=== PATIENT | male | born 1970 | race Caucasian/White ===

== ENCOUNTER 2019-02-25 08:16 | Day surgery (SDC) | payer BC ==
[2019-02-22 14:25] VITALS: BMI 37.1
[~2019-02-25 08:16] MED LIST: LACTATED RINGERS 1,000 ML IV SCH; LIDOCAINE 1% 20 ML VIAL (10MG/ML) FOR IV START INTRADERMA PRN
[2019-02-25 08:44] VITALS: RESP 16; TEMP 98
[2019-02-25] MEDS ORDERED: PROPOFOL 10 MG/ML 20 ML VIAL IV ONE (09:10)
[2019-02-25] MEDS ORDERED: LIDOCAINE 1% INJ 10MG/ML (20 ML MDV) ONE (09:10)
--- NOTE | 2019-02-25 09:13 | P.GSHP ---
History of Present Illness H&P Date: 02/25/19 Chief Complaint: Colon cancer screening Patient here today for colonoscopy. Last colonoscopy 10 years ago. That study was normal. No bowel related complaints. No family history of colon cancer Past Medical History Past Medical History: Hypertension Additional Past Medical History / Comment(s): seasonal allergies History of Any Multi-Drug Resistant Organisms: None Reported Past Surgical History: No Surgical Hx Reported Additional Past Surgical History / Comment(s): colonscopies Past Anesthesia/Blood Transfusion Reactions: No Reported Reaction Past Psychological History: Anxiety, Depression Smoking Status: Never smoker Past Alcohol Use History: Occasional Past Drug Use History: None Reported - Past Family History Mother Family Medical History: Pulmonary Embolus Father Family Medical History: Congestive Heart Failure (CHF), Coronary Artery Disease (CAD), Diabetes Mellitus, Myocardial Infarction (ME) Medications and Allergies Home Medications Medication Instructions Recorded Confirmed Type Cetirizine HCl [Zyrtec] 10 mg PO DAILY 02/22/19 02/25/19 History Fluticasone Nasal [place] [Flonase 1 spray EA NOSTRIL DAILY PRN 02/22/19 02/25/19 History Nasal [place]] Lisinopril [Zestril] 20 mg PO DAILY 02/22/19 02/25/19 History Multivitamins, Thera [Multivitamin 1 tab PO DAILY 02/22/19 02/25/19 History (formulary)] Allergies Allergy/AdvReac Type Severity Reaction Status Date / Time amoxicillin Allergy Anaphylaxis Verified 02/25/19 08:44 Surgical - Exam Vital Signs Temp Pulse Resp BP Pulse Ox 98 F 97 16 138/92 97 02/25/19 08:42 02/25/19 08:42 02/25/19 08:42 02/25/19 08:42 02/25/19 08:42 Physical exam: General: Well-developed, well-nourished HEENT: Normocephalic, sclerae nonicteric Abdomen: Nontender, nondistended Extremities: No edema Neuro: Alert and oriented Assessment and Plan (1) Colon cancer screening Narrative/Plan: Will proceed with colonoscopy at this time. Current Visit: Yes Status: Acute Code(s): Z12.11 - ENCOUNTER FOR SCREENING FOR MALIGNANT NEOPLASM OF COLON SNOMED Code(s): 127724621
[2019-02-25 09:51] VITALS: BP 121/84; PULSE 79
== END 2019-02-25 09:57 | disposition home or self-care (01) ==
LOC: ORWHC2ENDO 08:16
PROVIDERS: ATTEND Surgery
DX: Z12.11 Encounter for screening for malignant neoplasm of colon (principal); K63.5 Polyp of colon; D12.3 Benign neoplasm of transverse colon; I10 Essential (primary) hypertension; Z82.49 Family history of ischemic heart disease and other diseases of the circulatory system; Z83.3 Family history of diabetes mellitus; Z79.51 Long term (current) use of inhaled steroids; Z79.899 Other long term (current) drug therapy; Z88.1 Allergy status to other antibiotic agents
CPT/HCPCS: 88305; 45385; J2001; J2704

== ENCOUNTER → 2019-07-08 | Outpatient (CLI) | payer BC ==
[2019-07-08 17:39] LABS: Basophils # (A) 0.1 k/uL (0-0.2); Basophils % (A) 1 %; Eosinophils # (A) 0.1 k/uL (0-0.7); Eosinophils % (A) 1 %; HCT 47.5 % (39.0-53.0); HGB 16.2 gm/dL (13.0-17.5); Lymphocytes # (A) 4.4 k/uL (1.0-4.8); Lymphocytes % (A) 43 %; MCH 31.8 pg (25.0-35.0); MCHC 34.1 g/dL (31.0-37.0); MCV 93.4 fL (80.0-100.0); Mean Platelet Volume 7.3; Monocytes # (A) 0.4 k/uL (0-1.0); Monocytes % (A) 4 %; Neutrophils # (A) 5.1 k/uL (1.3-7.7); Neutrophils % (A) 50 %; Platelet Count 222 k/uL (150-450); RBC 5.08 m/uL (4.30-5.90); RDW 11.9 % (11.5-15.5); WBC 10.2 k/uL (3.8-10.6)
[2019-07-08 23:24] LABS: Erythrocyte Sedimentation Rate 8 mm/hr (0-15)
[2019-07-09 01:05] LABS: C Reactive Protein <0.4 mg/dL (0.0-0.8); Uric Acid 5.7 mg/dL (3.7-8.7)
== END | disposition home or self-care (01) ==
LOC: LABWHC1 17:13
PROVIDERS: ATTEND Orthopaedic Surgery
DX: M25.571 Pain in right ankle and joints of right foot (principal); M19.071 Primary osteoarthritis, right ankle and foot; I10 Essential (primary) hypertension; Z85.9 Personal history of malignant neoplasm, unspecified
CPT/HCPCS: 36415; 84443; 84550; 85025; 85652; 86140

== ENCOUNTER → 2019-07-13 | Outpatient (CLI) | payer BC | END | disposition home or self-care (01) | LOC: LABWHC1 17:22 | PROVIDERS: ATTEND Orthopaedic Surgery | DX: M25.571 Pain in right ankle and joints of right foot (principal); S92.101A Unspecified fracture of right talus, initial encounter for closed fracture; I10 Essential (primary) hypertension; M19.071 Primary osteoarthritis, right ankle and foot; E55.9 Vitamin D deficiency, unspecified; Z85.9 Personal history of malignant neoplasm, unspecified | CPT/HCPCS: 36415; 82306 ==

== ENCOUNTER 2020-10-08 20:23 | Emergency (ER) | payer BC ==
--- NOTE | 2020-10-08 20:30 | ED ---
General Adult HPI - General Source: patient, RN notes reviewed Mode of arrival: ambulatory Limitations: no limitations <Hayden Erickson - Last Filed: 10/08/20 20:28> <Arnol Davis - Last Filed: 10/09/20 06:48> - General Stated complaint: SOB Time Seen by Provider: 10/08/20 20:28 - History of Present Illness Initial comments: This a 50-year-old male presents emergency Department chief complaint of shortness of breath. Patient's been having progressive symptoms over the last 1 week. Patient has had 2 recent covid test which were negative one was today at [facility]. Patient states that he has some chest tightness. Patient has no history of lung disease denies being a smoker. Patient does have some left arm pain. Patient had a fever, cough also has had some bodyaches and chills. (Hayden Erickson) - Related Data Home Medications Medication Instructions Recorded Confirmed Cetirizine HCl [Zyrtec] 10 mg PO DAILY 02/22/19 02/25/19 Fluticasone Nasal [place] [Flonase 1 spray EA NOSTRIL DAILY PRN 02/22/19 02/25/19 Nasal [place]] Multivitamins, Thera [Multivitamin 1 tab PO DAILY 02/22/19 02/25/19 (formulary)] lisinopriL [Zestril] 20 mg PO DAILY 02/22/19 02/25/19 Previous Rx's Medication Instructions Recorded Azithromycin [Zithromax Z-pack (6 250 mg PO DIRECTED #6 tab 10/09/20 tabs)] Allergies Allergy/AdvReac Type Severity Reaction Status Date / Time amoxicillin Allergy Anaphylaxis Verified 10/08/20 20:31 Review of Systems ROS Other: All systems not noted in ROS Statement are negative. <Hayden Erickson - Last Filed: 10/08/20 20:28> ROS Other: All systems not noted in ROS Statement are negative. Constitutional: Denies: fever, chills, weakness Respiratory: Reports: cough. Denies: dyspnea, wheezes, hemoptysis Cardiovascular: Reports: dyspnea on exertion. Denies: chest pain, palpitations, orthopnea, edema, syncope Gastrointestinal: Denies: abdominal pain, nausea, vomiting, diarrhea Genitourinary: Denies: dysuria, hematuria Musculoskeletal: Denies: back pain Skin: Denies: rash Neurological: Denies: headache, weakness, numbness <Arnol Davis - Last Filed: 10/09/20 06:48> ROS Statement: Those systems with pertinent positive or pertinent negative responses have been documented in the HPI. Past Medical History Past Medical History: Hypertension Additional Past Medical History / Comment(s): seasonal allergies History of Any Multi-Drug Resistant Organisms: None Reported Past Surgical History: No Surgical Hx Reported Additional Past Surgical History / Comment(s): colonscopies Past Anesthesia/Blood Transfusion Reactions: No Reported Reaction Past Psychological History: Anxiety, Depression Past Alcohol Use History: Occasional Past Drug Use History: None Reported - Past Family History Mother Family Medical History: Pulmonary Embolus Father Family Medical History: Congestive Heart Failure (CHF), Coronary Artery Disease (CAD), Diabetes Mellitus, Myocardial Infarction (MA) <Hayden Erickson - Last Filed: 10/08/20 20:28> General Exam General appearance: alert, in no apparent distress Head exam: Present: atraumatic, normocephalic Eye exam: Present: normal appearance. Absent: scleral icterus, conjunctival injection ENT exam: Present: normal oropharynx Neck exam: Present: normal inspection, full ROM Respiratory exam: Present: normal lung sounds bilaterally. Absent: respiratory distress, wheezes, rales, rhonchi, stridor Cardiovascular Exam: Present: regular rate, normal rhythm, normal heart sounds. Absent: systolic murmur, diastolic murmur, rubs, gallop GI/Abdominal exam: Present: soft. Absent: distended, tenderness, guarding, rebound, rigid, mass Extremities exam: Present: normal inspection, normal capillary refill. Absent: pedal edema, calf tenderness Back exam: Present: normal inspection. Absent: CVA tenderness (R), CVA tenderness (L) Neurological exam: Present: alert Skin exam: Present: warm, dry, intact, normal color. Absent: rash <Arnol Davis - Last Filed: 10/09/20 06:48> Course Vital Signs 10/08/20 10/08/20 10/09/20 20:27 20:40 00:31 Temperature 97.8 F 97.9 F Pulse Rate 109 H 80 Respiratory 18 18 17 Rate Blood Pressure 132/77 131/84 O2 Sat by Pulse 94 L 98 Oximetry EKG Findings - EKG Results: EKG: interpreted by ERMMarielena, sinus rhythm (Rate 91 bpm) - Blocks, [place], Hypertrophy, ST Abn: Chamber hypertrophy or enlargement: left ventricular hypertrophy or enlargement (LVE) (With repolarization abnormality) <Arnol Davis - Last Filed: 10/09/20 06:48> Medical Decision Making - Lab Data Result diagrams: 10/08/20 23:10 10/08/20 23:02 <Arnol Davis - Last Filed: 10/09/20 06:48> - Medical Decision Making I saw this patient in conjunction with the physician residential living assistant. I performed independent history and physical exam. Agree with case management. (Arnol Davis) - Lab Data Lab Results 10/08/20 10/08/20 10/08/20 Range/Units 23:02 23:02 23:02 WBC (3.8-10.6) k/uL RBC (4.30-5.90) m/uL Hgb (13.0-17.5) gm/dL Hct (39.0-53.0) % MCV (80.0-100.0) fL MCH (25.0-35.0) pg MCHC (31.0-37.0) g/dL RDW (11.5-15.5) % Plt Count (150-450) k/uL MPV Neutrophils % % Lymphocytes % % Monocytes % % Eosinophils % % Basophils % % Neutrophils # (1.3-7.7) k/uL Lymphocytes # (1.0-4.8) k/uL Monocytes # (0-1.0) k/uL Eosinophils # (0-0.7) k/uL Basophils # (0-0.2) k/uL PT 10.4 (9.0-12.0) sec INR 1.0 (<1.2) APTT 25.4 (22.0-30.0) sec D-Dimer 0.29 (<0.60) mg/L FEU Sodium 137 (137-145) mmol/L Potassium 4.1 (3.5-5.1) mmol/L Chloride 103 (98-107) mmol/L Carbon Dioxide 23 (22-30) mmol/L Anion Gap 11 mmol/L BUN 18 (9-20) mg/dL Creatinine 0.81 (0.66-1.25) mg/dL Est GFR (CKD-EPI)AfAm >90 (>60 ml/min/1.73 sqM) Est GFR (CKD-EPI)NonAf >90 (>60 ml/min/1.73 sqM) Glucose 149 H (74-99) mg/dL Plasma Lactic Acid Adriano 1.3 (0.7-2.0) mmol/L Calcium 9.3 (8.4-10.2) mg/dL Total Bilirubin 0.7 (0.2-1.3) mg/dL AST 46 (17-59) U/L ALT 42 (4-49) U/L Alkaline Phosphatase 69 (38-126) U/L Troponin I (0.000-0.034) ng/mL NT-Pro-B Natriuret Pep pg/mL Total Protein 7.2 (6.3-8.2) g/dL Albumin 4.3 (3.5-5.0) g/dL 10/08/20 10/08/20 10/08/20 Range/Units 23:02 23:02 23:10 WBC 5.6 (3.8-10.6) k/uL RBC 5.15 (4.30-5.90) m/uL Hgb 16.4 (13.0-17.5) gm/dL Hct 46.8 (39.0-53.0) % MCV 90.8 (80.0-100.0) fL MCH 31.8 (25.0-35.0) pg MCHC 35.0 (31.0-37.0) g/dL RDW 11.7 (11.5-15.5) % Plt Count 111 L (150-450) k/uL MPV 7.8 Neutrophils % 73 % Lymphocytes % 22 % Monocytes % 4 % Eosinophils % 0 % Basophils % 0 % Neutrophils # 4.1 (1.3-7.7) k/uL Lymphocytes # 1.2 (1.0-4.8) k/uL Monocytes # 0.2 (0-1.0) k/uL Eosinophils # 0.0 (0-0.7) k/uL Basophils # 0.0 (0-0.2) k/uL PT (9.0-12.0) sec INR (<1.2) APTT (22.0-30.0) sec D-Dimer (<0.60) mg/L FEU Sodium (137-145) mmol/L Potassium (3.5-5.1) mmol/L Chloride (98-107) mmol/L Carbon Dioxide (22-30) mmol/L Anion Gap mmol/L BUN (9-20) mg/dL Creatinine (0.66-1.25) mg/dL Est GFR (CKD-EPI)AfAm (>60 ml/min/1.73 sqM) Est GFR (CKD-EPI)NonAf (>60 ml/min/1.73 sqM) Glucose (74-99) mg/dL Plasma Lactic Acid Adriano (0.7-2.0) mmol/L Calcium (8.4-10.2) mg/dL Total Bilirubin (0.2-1.3) mg/dL AST (17-59) U/L ALT (4-49) U/L Alkaline Phosphatase (38-126) U/L Troponin I <0.012 (0.000-0.034) ng/mL NT-Pro-B Natriuret Pep 66 pg/mL Total Protein (6.3-8.2) g/dL Albumin (3.5-5.0) g/dL Disposition <Hayden Erickson - Last Filed: 10/08/20 20:28> Is patient prescribed a controlled substance at d/c from ED?: No <Arnol Davis - Last Filed: 10/09/20 06:48> Clinical Impression: Pneumonia Disposition: HOME SELF-CARE Condition: Good Instructions (If sedation given, give patient instructions): Pneumonia (ED) Prescriptions: Azithromycin [Zithromax Z-pack (6 tabs)] 250 mg PO DIRECTED #6 tab Referrals: Nicolas Medina III, MD [Primary Care Provider] - 1-2 days
--- NOTE | 2020-10-08 22:13 | XR ---
EXAMINATION TYPE: XR chest 2V DATE OF EXAM: 10/08/2020 CLINICAL HISTORY: sob. TECHNIQUE: Frontal and lateral view of the chest. COMPARISON: None FINDINGS: Low lung volumes. The cardiomediastinal silhouette is within normal limits for size. Pulmo nary vasculature is normal. There are perihilar and left lateral lung focal airspace opacities. No pl eural effusion, or pneumothorax seen. The osseous structures are intact. IMPRESSION: 1. Left lower lobe focal pneumonia. Recommend follow-up to resolution. 2. Right infrahilar airspace opacity may be accentuated lung markings due to low lung volumes.
[2020-10-08] MEDS ORDERED: AZITHROMYCIN 500 MG TAB PO STA (22:16)
[2020-10-08 23:33] LABS: Basophils % (A) 0 %; Eosinophils % (A) 0 %; HCT 46.8 % (39.0-53.0); HGB 16.4 gm/dL (13.0-17.5); Lymphocytes # (A) 1.2 k/uL (1.0-4.8); Lymphocytes % (A) 22 %; MCH 31.8 pg (25.0-35.0); MCV 90.8 fL (80.0-100.0); Mean Platelet Volume 7.8; Monocytes # (A) 0.2 k/uL (0-1.0); Monocytes % (A) 4 %; Neutrophils # (A) 4.1 k/uL (1.3-7.7); Neutrophils % (A) 73 %; Platelet Count 111 k/uL (150-450); RBC 5.15 m/uL (4.30-5.90); RDW 11.7 % (11.5-15.5); WBC 5.6 k/uL (3.8-10.6)
[2020-10-08 23:43] LABS: ALT 42 U/L (4-49); AST 46 U/L (17-59); African American GFR (CKD) >90 (>60 ml/min/1.73 sqM); Albumin 4.3 g/dL (3.5-5.0); Alkaline Phosphatase 69 U/L (38-126); Anion Gap 11 mmol/L; Blood Urea Nitrogen 18 mg/dL (9-20); Calcium 9.3 mg/dL (8.4-10.2); Carbon Dioxide 23 mmol/L (22-30); Chloride 103 mmol/L (98-107); Glucose 149 mg/dL (74-99); Non-African American GFR(CKD) >90 (>60 ml/min/1.73 sqM); Potassium 4.1 mmol/L (3.5-5.1); Sodium 137 mmol/L (137-145); Total Bilirubin 0.7 mg/dL (0.2-1.3); Total Protein 7.2 g/dL (6.3-8.2)
[2020-10-08 23:50] LABS: D-Dimer 0.29 mg/L FEU (<0.60); Partial Thromboplastin Time 25.4 sec (22.0-30.0); Prothrombin Time 10.4 sec (9.0-12.0)
[2020-10-09 01:09] VITALS: BP 131/84; PULSE 80; RESP 17; TEMP 97.9
== END 2020-10-09 01:08 | disposition home or self-care (01) ==
LOC: EC 20:23
DX: J18.9 Pneumonia, unspecified organism (principal); M79.602 Pain in left arm; I10 Essential (primary) hypertension; Z79.899 Other long term (current) drug therapy; Z88.0 Allergy status to penicillin
CPT/HCPCS: 36415; 93005; 85379; 83880; 80053; 83605; 84484; 85025; 85610; 85730; 71046; 99285; 96365; J0696

== ENCOUNTER 2020-10-15 14:46 | Inpatient (IN) | payer BC ==
[2020-10-15 15:20] LABS: African American GFR (CKD) >90 (>60 ml/min/1.73 sqM); Anion Gap 12 mmol/L; Blood Urea Nitrogen 18 mg/dL (9-20); Calcium 8.7 mg/dL (8.4-10.2); Carbon Dioxide 24 mmol/L (22-30); Chloride 104 mmol/L (98-107); Glucose 153 mg/dL (74-99); Non-African American GFR(CKD) >90 (>60 ml/min/1.73 sqM); Potassium 3.4 mmol/L (3.5-5.1); Sodium 140 mmol/L (137-145)
--- NOTE | 2020-10-15 15:24 | XR ---
EXAMINATION TYPE: XR chest 1V portable DATE OF EXAM: 10/15/2020 HISTORY: Patchy perihilar infiltrates compatible with Covid 19 pneumonia. COMPARISON: 10/08/2020 TECHNIQUE: Single view of the chest is submitted. FINDINGS: Demonstrated are scattered senescent parenchymal change. Patchy perihilar infiltrates compatible with Covid 19 pneumonia. The heart is stable. Hilar and mediastinal structures are within normal limits. Degenerative changes are seen of the dorsal spine. IMPRESSION: 1. Chronic changes without evidence for acute pulmonary disease.
[2020-10-15 15:27] LABS: Basophils # (A) 0.1 k/uL (0-0.2); Basophils % (A) 1 %; Eosinophils # (A) 0.1 k/uL (0-0.7); Eosinophils % (A) 1 %; HCT 44.4 % (39.0-53.0); HGB 15.5 gm/dL (13.0-17.5); Lymphocytes # (A) 1.4 k/uL (1.0-4.8); Lymphocytes % (A) 12 %; MCH 31.9 pg (25.0-35.0); MCV 91.1 fL (80.0-100.0); Mean Platelet Volume 7.4; Monocytes # (A) 0.5 k/uL (0-1.0); Monocytes % (A) 4 %; Neutrophils % (A) 82 %; RBC 4.87 m/uL (4.30-5.90); WBC 12.2 k/uL (3.8-10.6)
[2020-10-15 15:29] LABS: Platelet Count 269 k/uL (150-450)
[2020-10-15] MEDS ORDERED: DEXAMETHASONE SOD PHOSPHATE 10 MG/ML 1 ML VIAL IV STA (15:31)
--- NOTE | 2020-10-15 15:36 | ED ---
General Adult HPI - General Chief complaint: Shortness of Breath Stated complaint: SOB Time Seen by Provider: 10/15/20 14:47 Source: patient, EMS Mode of arrival: EMS Limitations: no limitations - History of Present Illness Initial comments: Dictation was produced using enGene dictation software. please excuse any grammatical, word or spelling errors. This patient was cared for during a federal and state declared state of emergency secondary to Covid 19 Chief Complaint: 50-year-old male brought in by EMS for worsening shortness of breath fever. History of Present Illness: It is a 50-year-old male who states he has past medical history of hypertension and seasonal ALLERGIES. He has no other comorbidities. Patient states 2 weeks away. Having symptoms of fever, shortness of breath. Been tested at [facility] for coronavirus and was negative. Patient denies any obvious exposure to anybody with coronavirus. Patient was seen here in the emergency department 7 days ago where he was diagnosed with pneumonia. He is given prescription for Zithromax pack and discharged. The ROS documented in this emergency department record has been reviewed and confirmed by me. Those systems with pertinent positive or negative responses have been documented in the HPI. All other systems are other negative and/or noncontributory. PHYSICAL EXAM: General Impression: Alert and oriented x3, distress secondary to dyspnea HEENT: Normocephalic atraumatic, extra-ocular movements intact, pupils equal and reactive to light bilaterally, mucous membranes moist. Cardiovascular: Mildly tachycardic Chest: Three word sentences, no retractions, no tachypnea Abdomen: abdomen soft, non-tender, non-distended, no organomegaly Musculoskeletal: Pulses present and equal in all extremities, no peripheral edema Motor: no focal deficits noted Neurological: CN II-XII grossly intact, no focal motor or sensory deficits noted Skin: Intact with no visualized rashes Psych: Normal affect and mood ED course: 50-year-old male presents emergency department for worsening shortness of breath. As upon arrival shows hypoxia 76% on room air. Patient p laced on 6 L and his gait with improvement to 85%. Patient is tachypneic with a heart rate of 40. Patient be placed on BiPAP. Chest x-ray shows bilateral filtrates COVID-19. Patient's saturations improved to 97% with BiPAP. Laboratory evaluation obtained. CBC shows mild leukocytosis of 12.2. Metabolic panel is unremarkable. Arterial blood gas shows pO2 54 and 60% FiO2. This was prior to initiation of BiPAP therapy. PCO2 35, bicarb is 26. Chest x-ray shows chronic changes. Given patient's degree of symptoms changes CT angios the chest was ordered showing multiple scattered filling defects within the second third order branches bilaterally in the right greater than the left compatible with pulmonary embolism. There is also radiographic evidence of COVID-[address] Ernst's went except patient's care. Patient is non- hypotensive. I believe that most of patient's respiratory symptoms are secondary to COVID-19 pneumonias post pulmonary embolism. Nonetheless patient started on high-dose heparin therapy. We will admit to cardiac telemetry with consultation to pulmonology. EKG interpretation: Ventricular rate 106, sinus tachycardia, MA interval 140, Q RS 84, QTC 488. No MA prolongation, no QTC prolongation, no ST or T-wave changes noted. EKG compared to 10/08/2020 showing no changes. Overall, this EKG is unremarkable - Related Data Home Medications Medication Instructions Recorded Confirmed Cetirizine HCl [Zyrtec] 10 mg PO DAILY 02/22/19 10/15/20 lisinopriL [Zestril] 20 mg PO DAILY 02/22/19 10/15/20 ALPRAZolam [Xanax] 0.125 - 0.25 mg PO Q6H PRN 10/15/20 10/15/20 Albuterol Sulfate [Proair 1 puff PO RT-Q4H PRN 10/15/20 10/15/20 Respiclick] Benzonatate [Tessalon Perles] 100 mg PO TID PRN 10/15/20 10/15/20 Escitalopram [Lexapro] 10 mg PO DAILY 10/15/20 10/15/20 Multivit-Min/FA/Lycopen/Lutein 1 tab PO DAILY 10/15/20 10/15/20 [Centrum Silver Men Tablet] Multivitamin [Multivitamins Adult 1 tab PO DAILY 10/15/20 10/15/20 Gummies] levoFLOXacin 750 mg PO DAILY 10/15/20 10/15/20 Allergies Allergy/AdvReac Type Severity Reaction Status Date / Time amoxicillin Allergy Anaphylaxis Verified 10/15/20 16:05 Review of Systems ROS Statement: Those systems with pertinent positive or pertinent negative responses have been documented in the HPI. ROS Other: All systems not noted in ROS Statement are negative. Past Medical History Past Medical History: Hypertension, Pneumonia Additional Past Medical History / Comment(s): seasonal allergies History of Any Multi-Drug Resistant Organisms: None Reported Past Surgical History: No Surgical Hx Reported Additional Past Surgical History / Comment(s): colonscopies Past Anesthesia/Blood Transfusion Reactions: No Reported Reaction Past Psychological History: Anxiety, Depression Smoking Status: Never smoker Past Alcohol Use History: Occasional Past Drug Use History: None Reported - Past Family History Mother Family Medical History: Pulmonary Embolus Father Family Medical History: Congestive Heart Failure (CHF), Coronary Artery Disease (CAD), Diabetes Mellitus, Myocardial Infarction (DC) General Exam Limitations: no limitations Course Vital Signs 10/15/20 10/15/20 10/15/20 14:48 14:57 15:11 Temperature 98.3 F Pulse Rate 107 H Respiratory 40 H Rate Blood Pressure 130/86 O2 Sat by Pulse 76 L 85 L 90 L Oximetry 10/15/20 10/15/20 15:47 16:05 Temperature Pulse Rate 94 Respiratory 32 H 40 H Rate Blood Pressure O2 Sat by Pulse 96 Oximetry Medical Decision Making - Lab Data Result diagrams: 10/15/20 15:05 10/15/20 15:05 Lab Results 10/15/20 10/15/20 10/15/20 Range/Units 15:05 15:05 16:05 WBC 12.2 H (3.8-10.6) k/uL RBC 4.87 (4.30-5.90) m/uL Hgb 15.5 (13.0-17.5) gm/dL Hct 44.4 (39.0-53.0) % MCV 91.1 (80.0-100.0) fL MCH 31.9 (25.0-35.0) pg MCHC 35.0 (31.0-37.0) g/dL RDW 12.0 (11.5-15.5) % Plt Count 269 D (150-450) k/uL MPV 7.4 Neutrophils % 82 % Lymphocytes % 12 % Monocytes % 4 % Eosinophils % 1 % Basophils % 1 % Neutrophils # 10.0 H (1.3-7.7) k/uL Lymphocytes # 1.4 (1.0-4.8) k/uL Monocytes # 0.5 (0-1.0) k/uL Eosinophils # 0.1 (0-0.7) k/uL Basophils # 0.1 (0-0.2) k/uL Sample Site rrad ABG pH 7.49 H (7.35-7.45) ABG pCO2 35 (35-45) mmHg ABG pO2 54 L* (83-108) mmHg ABG HCO3 26 H (21-25) mmol/L ABG Total CO2 28 H (19-24) mmol/L ABG O2 Saturation 88.6 L (94-97) % ABG Base Excess 3.0 mmol/L Davey Test Yes FiO2 60 % Sodium 140 (137-145) mmol/L Potassium 3.4 L (3.5-5.1) mmol/L Chloride 104 (98-107) mmol/L Carbon Dioxide 24 (22-30) mmol/L Anion Gap 12 mmol/L BUN 18 (9-20) mg/dL Creatinine 0.69 (0.66-1.25) mg/dL Est GFR (CKD-EPI)AfAm >90 (>60 ml/min/1.73 sqM) Est GFR (CKD-EPI)NonAf >90 (>60 ml/min/1.73 sqM) Glucose 153 H (74-99) mg/dL Calcium 8.7 (8.4-10.2) mg/dL Critical Care Time Critical Care Time: Yes Total Critical Care Time: 33 Disposition Clinical Impression: COVID-19, Hypoxia, Pulmonary emboli Disposition: ADMITTED IP TO THIS [facility] Condition: Critical Referrals: Nicolas Medina III, MD [Primary Care Provider] - 1-2 days Decision Time: 16:35
--- NOTE | 2020-10-15 15:59 | CT ---
EXAMINATION TYPE: CT angio chest DATE OF EXAM: 10/15/2020 COMPARISON: None HISTORY: Shortness of breath and productive cough. CT DLP: 530.2 mGycm CONTRAST: CT chest with contrast and 3D reconstruction with MIP imaging is performed with IV Contrast, patient injected with 100 mL of Isovue 370. Contrast-enhanced CT of the chest was performed through the course of the pulmonary arteries with mehdi g and mediastinal window settings submitted. 3D reconstruction with MIP imaging was also performed. PULMONARY ARTERIES: There are a few scattered filling defects noted within the second and third order branches bilaterally right greater than left compatible with pulmonary embolism. No evidence for sheron tral embolus or sagittal component. LUNGS: Diffuse airspace infiltrates compatible with Covid 19 pneumonia. MEDIASTINUM: Thoracic aorta is of normal caliber,however, evaluation is limited given timing of the contrast bolus. If there is concern for thoracic aortic pathology consider JOSE. Correlate clinicall y . The heart is not enlarged. No evidence for mediastinal mass. No mediastinal lymph nodes greater than 1cm. HILAR STRUCTURES: No evidence for mass. No hilar lymph nodes greater than 1 cm. UPPER ABDOMEN: No significant abnormality is seen. IMPRESSION: 1. Findings compatible with pulmonary embolism. 2. Covid 19 pneumonia.
[2020-10-15 16:09] LABS: ABG HCO3 26 mmol/L (21-25); ABG Oxygen Saturation 88.6 % (94-97); ABG PCO2 35 mmHg (35-45); ABG PH 7.49 (7.35-7.45); ABG TCO2 28 mmol/L (19-24); Allen Test Performed? Yes
[2020-10-15 16:12] LABS: ABG PO2 54 mmHg (83-108)
[2020-10-15] MEDS ORDERED: HEPARIN SODIUM 1,000 UN/ML (10ML VL) IV PRN (16:26)
[2020-10-15] MEDS ORDERED: HEPARIN SODIUM 1,000 UN/ML (10ML VL) IV ONE (16:26)
[2020-10-15] MEDS ORDERED: ACETAMINOPHEN TAB 325 MG TAB PO PRN (16:31)
[2020-10-15] MEDS ORDERED: NALOXONE 0.4 MG/ML 1 ML VIAL IV PRN (16:31)
[2020-10-15] MEDS ORDERED: ONDANSETRON 4 MG/2 ML VIAL IVP PRN (16:31)
[2020-10-15] MEDS: SODIUM CHLORIDE 0.9% 1,000 ML IV SCH (16:49)
[2020-10-15] MEDS: HEPARIN SOD,PORK IN 0.45% NACL 25,000 UNIT in 0.45% NACL 1 250ML.BAG IV SCH (16:50)
[2020-10-15] MEDS ORDERED: ALPRAZolam 0.25 MG TAB PO PRN (19:08)
[2020-10-15] MEDS ORDERED: BENZONATATE 100 MG CAP PO PRN (19:08)
[2020-10-15] MEDS ORDERED: Magnesium Replacement Protocol 1 EACH MISC MISCELLANE PRN (19:11)
[2020-10-15] MEDS ORDERED: Potassium Replacement Protocol 1 EACH MISC MISCELLANE PRN (19:11)
[2020-10-15 20:04] LABS: ALT 109 U/L (4-49); AST 66 U/L (17-59); African American GFR (CKD) >90 (>60 ml/min/1.73 sqM); Albumin 3.8 g/dL (3.5-5.0); Alkaline Phosphatase 100 U/L (38-126); Anion Gap 10 mmol/L; Blood Urea Nitrogen 18 mg/dL (9-20); Calcium 9.1 mg/dL (8.4-10.2); Carbon Dioxide 27 mmol/L (22-30); Chloride 103 mmol/L (98-107); Glucose 201 mg/dL (74-99); LDH 1092 U/L (313-618); Magnesium 2.3 mg/dL (1.6-2.3); Non-African American GFR(CKD) >90 (>60 ml/min/1.73 sqM); Potassium 3.9 mmol/L (3.5-5.1); Sodium 140 mmol/L (137-145); Total Bilirubin 0.9 mg/dL (0.2-1.3); Total Protein 7.1 g/dL (6.3-8.2)
--- NOTE | 2020-10-15 20:28 | HP ---
HISTORY AND PHYSICAL DATE OF SERVICE: 10/15/2020 CHIEF COMPLAINT: Shortness of breath. HISTORY OF PRESENT ILLNESS: This 50-year-old gentleman with a past medical history of hypertension, history of pneumonia, seasonal allergies, anxiety, depression, being followed by Dr. Medina in the outpatient setting, was complaining of cough and fever and shortness of breath for the past 2 weeks. The previous testing at [facility] for COVID-19 was negative. The patient's father was actually admitted to [facility] for several days with COVID-19 pneumonia. The patient was seen in the emergency room and the patient was given Z-Richard and was discharged. Currently the patient is complaining of increased shortness of breath and cough and sputum, and the patient came to [facility] and was admitted for further evaluation and treatment. The evaluation showed WBC 12.2 and a COVID-19 was taken . The chest x-ray which was personally reviewed by me showed evidence of bilateral pneumonia suggestive of COVID-19. The chest CTA showed bilateral pulmonary embolism as well as pneumonia. Chest CTA again personally reviewed by me showed bilateral lesions fairly typical of COVID-19 pneumonia which were very extensive. There is no history of any rigor. No history of headache, loss of consciousness, seizures at this time. PAST MEDICAL HISTORY: History of hypertension, history of pneumonia, history of seasonal allergies, anxiety, depression. HOME MEDICATIONS: Levaquin, Xanax, Zestril, multivitamins, Lexapro, Zyrtec, Tessalon, ProAir. ALLERGIES: AMOXICILLIN. FAMILY HISTORY: History of pulmonary embolism in the family. SOCIAL HISTORY: No history of smoking. Occasional alcohol intake. REVIEW OF SYSTEMS: ENT: No diminished hearing. No diminished vision. CARDIOVASCULAR SYSTEM: As mentioned earlier. RESPIRATORY SYSTEM: As mentioned earlier. GI: No nausea, vomiting. : No dysuria or retention. NERVOUS SYSTEM: No numbness, weakness. ALLERGY/IMMUNOLOGY: No asthma, hayfever. MUSCULOSKELETAL: As mentioned earlier. HEMATOLOGY/ONCOLOGY: No history of anemia. ENDOCRINE: No history of diabetes, hypothyroidism. CONSTITUTIONAL: As mentioned earlier. DERMATOLOGY: Negative. RHEUMATOLOGY: Negative. PSYCHIATRY: As mentioned earlier. PHYSICAL EXAMINATION: Patient alert and oriented x3. Pulse is 94, blood pressure 120/93, respirations 16, temperature normal, pulse ox 96% on BiPAP. HEENT: Conjunctivae normal. Oral mucosa moist. NECK: No jugular venous distention. No carotid bruit. No lymph node enlargement. CARDIOVASCULAR SYSTEM: S1, S2 muffled. RESPIRATORY SYSTEM: Breath sounds diminished at the bases. A few scattered rhonchi and crackles. ABDOMEN: Soft, obese, non-tender. No mass palpable. LEGS: No edema. No swelling. NERVOUS SYSTEM: Higher functions as mentioned earlier. Moves all 4 limbs. No focal motor or sensory deficit. LYMPHATICS: No lymph node palpable in neck, axillae or groin. SKIN: No ulcer, rash, bleeding. JOINTS: No active deforming arthropathy. LABS: WBC 12.2, hemoglobin 15.5. Sodium 140, potassium 3.4. ASSESSMENT: 1. Acute COVID-19 infection with acute bilateral interstitial pneumonia with acute hypoxic hypercarbic respiratory failure. 2. Acute bilateral pulmonary embolism. 3. Hypokalemia. 4. Increased white count. 5. Acute respiratory alkalosis. 6. Hypertension. 7. Pneumonia. 8. History of seasonal allergies. 9. History of anxiety, depression. 10.Obesity with body mass index 17.1. 11.FULL CODE. RECOMMENDATIONS AND DISCUSSION: In this 50-year-old gentleman who presented with multiple complex medical issues, we will monitor the patient closely, continue the current medications, continue symptomatic treatment. Will initiate dexamethasone, usual treatment for COVID-19 pneumonia. Otherwise, I would also recommend IV heparin. Consult Infectious Disease and Pulmonary. I would also recommend a serum procalcitonin also. Cultures also will be obtained. Prognosis is guarded because of multiple complex medical issues. Further recommendations to follow. A copy of this dictation is being forwarded to Dr. Medina, who is the primary physician. Replace the electrolyte as well. Prognosis guarded. MMODL / IJN: [id number] / MTDD
[2020-10-15 20:48] LABS: INR 1.2 (<1.2); Prothrombin Time 12.5 sec (9.0-12.0)
[2020-10-15 20:49] LABS: Partial Thromboplastin Time 116.8 sec (22.0-30.0)
[2020-10-15 20:51] LABS: D-Dimer 15.36 mg/L FEU (<0.60)
[2020-10-15 21:20] LABS: C Reactive Protein 16.5 mg/dL (<1.0)
[2020-10-15] MEDS: ZINC SULFATE 220 MG CAP PO SCH (23:25)
[2020-10-15] MEDS ORDERED: MORPHINE SULFATE 2 MG/ML SYRINGE IVP STA (23:53)
[2020-10-15] MEDS ORDERED: MORPHINE SULFATE 2 MG/ML SYRINGE IVP PRN (23:53)
[2020-10-15] MEDS ORDERED: LORazepam 2 MG/ML INJ IV STA (23:53)
[2020-10-16] MEDS: ALBUTEROL HFA INHALER INHALATION SCH ×5 (02:40→23:48)
[2020-10-16 05:37] LABS: Basophils % (A) 0 %; Eosinophils % (A) 0 %; HCT 43.2 % (39.0-53.0); HGB 14.5 gm/dL (13.0-17.5); Lymphocytes # (A) 1.1 k/uL (1.0-4.8); Lymphocytes % (A) 15 %; MCH 30.6 pg (25.0-35.0); MCHC 33.5 g/dL (31.0-37.0); MCV 91.4 fL (80.0-100.0); Mean Platelet Volume 7.3; Monocytes # (A) 0.2 k/uL (0-1.0); Monocytes % (A) 2 %; Neutrophils % (A) 80 %; Platelet Count 316 k/uL (150-450); RBC 4.73 m/uL (4.30-5.90); RDW 12.7 % (11.5-15.5); WBC 7.4 k/uL (3.8-10.6)
[2020-10-16] MEDS: HEPARIN SOD,PORK IN 0.45% NACL 25,000 UNIT in 0.45% NACL 1 250ML.BAG IV SCH ×2 (06:32→23:34)
--- NOTE | 2020-10-16 09:00 | P.CNPUL ---
History of Present Illness Consult date: 10/16/20 Requesting physician: Hardy Ernst Reason for consult: dyspnea, cough, hypoxemia, pneumonia, pneumothorax, pulmonary embolism Chief complaint: Shortness of breath. History of present illness: Pulmonary consult dated 10/16/2020. 50-year-old male, that was brought into the emergency room by EMS. He was seen there on October 15 by one of the ER physician. His complaints included shortness of breath, which could worsen over the last number of days. The patient hasn't been feeling well for weeks. The patient apparently tested recently at one of the urgent care centers and was negative for coronavirus. Here in our emergency room, he was also tested and was found to be negative. Currently, his father is in the hospital with coronavirus pneumonia. The patient had a computed tomography scan of the chest which not only showed small bilateral pulmonary emboli, but show typical bilateral groundglass opacities consistent with COVID 19 pneumonia. The patient complains of shortness of breath, cough, chest congestion, fever, chills, and muscle aches. Currently, he's on BiPAP with settings of IPAP 14, EPAP 7, and 100%. He is also getting IV heparin. In addition, there is an AIRVO device in his room set up at 60 L/m and 90% FiO2. His medical history is positive for hypertension. White count 7.4, hemoglobin 14.5, hematocrit 43.2, platelet count 316,000. PTT is 52.4. D-dimer is 15.36. Blood gases show a PaO2 of 54, PaCO2 35, and a pH is 7.49. Electrolyte profile is essentially normal. AST 66 LC 109 LDH 1092 troponin normal and C-reactive protein 16.5. Lim virus testing here was negative as mentioned above. Chest x-ray shows bilateral infiltrates, and computed tomography scan showed groundglass opacities as well as small bilateral pulmonary emboli. Review of Systems REVIEW OF SYSTEMS: CONSTITUTIONAL: Fever and chills. NEUROLOGIC: [ Negative.] HEENT: [ Negative.] CARDIAC: [Negative.] PULMONARY: Shortness of breath, cough, chest tightness, chest congestion. GI: [Negative.] : [Negative.] RHEUMATOLOGIC: [ Negative.] IMMUNOLOGIC: [ Negative.] ENDOCRINE: [Negative. ] DERMATOLOGIC: [Negative.] Past Medical History Past Medical History: Hypertension, Pneumonia Additional Past Medical History / Comment(s): seasonal allergies History of Any Multi-Drug Resistant Organisms: None Reported Past Surgical History: No Surgical Hx Reported Additional Past Surgical History / Comment(s): colonscopies Past Anesthesia/Blood Transfusion Reactions: No Reported Reaction Past Psychological History: Anxiety, Depression Smoking Status: Never smoker Past Alcohol Use History: None Reported Past Drug Use History: None Reported - Past Family History Mother Family Medical History: Pulmonary Embolus Father Family Medical History: Congestive Heart Failure (CHF), Coronary Artery Disease (CAD), Diabetes Mellitus, Myocardial Infarction ([place]) Medications and Allergies Home Medications Medication Instructions Recorded Confirmed Type Cetirizine HCl [Zyrtec] 10 mg PO DAILY 02/22/19 10/15/20 History lisinopriL [Zestril] 20 mg PO DAILY 02/22/19 10/15/20 History ALPRAZolam [Xanax] 0.125 - 0.25 mg PO Q6H PRN 10/15/20 10/15/20 History Albuterol Sulfate [Proair 1 puff PO RT-Q4H PRN 10/15/20 10/15/20 History Respiclick] Benzonatate [Tessalon Perles] 100 mg PO TID PRN 10/15/20 10/15/20 History Escitalopram [Lexapro] 10 mg PO DAILY 10/15/20 10/15/20 History Multivit-Min/FA/Lycopen/Lutein 1 tab PO DAILY 10/15/20 10/15/20 History [Centrum Silver Men Tablet] Multivitamin [Multivitamins Adult 1 tab PO DAILY 10/15/20 10/15/20 History Gummies] levoFLOXacin 750 mg PO DAILY 10/15/20 10/15/20 History Allergies Allergy/AdvReac Type Severity Reaction Status Date / Time amoxicillin Allergy Anaphylaxis Verified 10/15/20 16:05 Physical Exam Osteopathic Statement: *. No significant issues noted on an osteopathic structural exam other than those noted in the History and Physical/Consult. Vitals: Vital Signs Temp Pulse Resp BP Pulse Ox 10/16/20 07:50 91 L 10/16/20 06:37 97.9 F 98 20 150/97 90 L 10/15/20 23:42 92 L 10/15/20 21:20 97 32 H 138/92 96 04/26/21 16:54 94 16 132/93 96 10/15/20 16:05 94 40 H 96 10/15/20 15:47 32 H 10/15/20 15:11 90 L 10/15/20 14:57 85 L 10/15/20 14:48 98.3 F 107 H 40 H 130/86 76 L Intake and Output 10/15/20 10/16/20 10/16/20 22:59 06:59 14:59 Intake Total 234.737 Balance 234.737 Intake: Intake, IV Titration 234.737 Amount Heparin Sod,Pork in 0.45% 234.737 NaCl 25,000 unit In 0.45 % NaCl 1 250ml.bag @ 18 UNITS/KG/HR 18.779 mls/hr IV .[id number] [facility] Rx#: [id number] Other: Weight 104.326 kg No acute distress, oriented 3. Currently on AIRVO. Saturations 91%. HEENT examination is grossly unremarkable. Mucous membranes are moist. No oral lesions. Neck supple. Full range of motion. No adenopathy thyromegaly or neck vein distention. Cardiovascular examination reveals regular rhythm rate. S1-S2 normal. No S3 or S4. No discernible murmur noted. Heart sounds are distant. Heart rate 98 bpm. Lungs reveal diffuse bilateral rhonchi. Breath sounds are diminished. No wheezes. A few scattered crackles. The patient coughs on deep inspiration. Breath sounds are equal bilaterally. Abdomen soft bowel sounds are heard. No masses or tenderness. Extremities are intact. No cyanosis clubbing or edema. Skin is without rash or lesion. Neurologic examination is brief but nonfocal. Results - Laboratory Findings CBC and BMP: 10/16/20 04:59 10/15/20 19:32 ABG ABG pH 7.49 (7.35-7.45) H 10/15/20 16:05 ABG pCO2 35 mmHg (35-45) 10/15/20 16:05 ABG pO2 54 mmHg (83-108) L* 10/15/20 16:05 ABG O2 Saturation 88.6 % (94-97) L 10/15/20 16:05 PT/INR, D-dimer PT 12.5 sec (9.0-12.0) H 10/15/20 19:32 INR 1.2 (<1.2) H 10/15/20 19:32 D-Dimer 15.36 mg/L FEU (<0.60) H 10/15/20 19:32 Abnormal lab findings: Abnormal Labs 10/15/20 10/15/20 10/15/20 15:05 15:05 16:05 WBC 12.2 H Neutrophils # 10.0 H PT INR APTT D-Dimer ABG pH 7.49 H ABG pO2 54 L* ABG HCO3 26 H ABG Total CO2 28 H ABG O2 Saturation 88.6 L Potassium 3.4 L Glucose 153 H AST ALT Lactate Dehydrogenase C-Reactive Protein Procalcitonin 10/15/20 10/15/20 10/15/20 19:32 19:32 19:32 WBC Neutrophils # PT 12.5 H INR 1.2 H APTT 116.8 H* D-Dimer 15.36 H ABG pH ABG pO2 ABG HCO3 ABG Total CO2 ABG O2 Saturation Potassium Glucose 201 H AST 66 H ALT 109 H Lactate Dehydrogenase 1092 H C-Reactive Protein 16.5 H Procalcitonin 0.20 H 10/16/20 04:59 WBC Neutrophils # PT INR APTT 52.4 H D-Dimer ABG pH ABG pO2 ABG HCO3 ABG Total CO2 ABG O2 Saturation Potassium Glucose AST ALT Lactate Dehydrogenase C-Reactive Protein Procalcitonin - Diagnostic Findings Chest x-ray: image reviewed CT scan - chest: image reviewed Assessment and Plan Assessment: Acute hypoxemic respiratory failure, multifactorial, in part related to likely COVID 19 pneumonitis/pneumonia, as well as small bilateral pulmonary emboli. History of hypertension. Elevated inflammatory marker secondary to coronavirus infection. Hypercoagulable state secondary to coronavirus infection. Plan: Plan dated 10/16/2020. The patient can be admitted to the third floor. The patient is currently on IV heparin. The patient continues either BiPAP or AIRVO. The patient should get vitamin C, vitamin D3, and zinc, as well as Decadron. Additional recommendations and suggestions are forthcoming. Prognosis is guarded. The patient could be converted to a factor X a inhibitor later today or tomorrow. The pulmonary emboli a rather small and likely not the major etiology of the patient's hypoxemia. Additional recommendations and suggestions are forthcoming. Time with Patient: Greater than 30
[2020-10-16] MEDS: ASCORBIC ACID 500 MG TAB PO SCH (09:57)
[2020-10-16] MEDS: MULTIVITAMINS, THERA 1 EACH TAB PO SCH (09:57)
[2020-10-16] MEDS: CHOLECALCIFEROL 25 MCG (1000 IU) TABLET PO SCH (09:57)
[2020-10-16] MEDS: ESCITALOPRAM 10 MG TAB PO SCH (09:57)
[2020-10-16] MEDS: lisinopriL 20 MG TAB PO SCH (09:57)
[2020-10-16] MEDS: ZINC SULFATE 220 MG CAP PO SCH (09:57)
[2020-10-16] MEDS: dexAMETHasone 2 MG TAB PO SCH (09:57)
[2020-10-16] MEDS ORDERED: VANCOMYCIN IV PER PHARMACY 1 EACH MISC MISCELLANE PRN (11:44)
[2020-10-16 12:44] LABS: Ferritin 1485.4 ng/mL (22.0-322.0)
--- NOTE | 2020-10-16 14:09 | P.PN ---
Subjective 50-year-old that male admitted for acute hypoxic respiratory failure which was initially believed to be secondary to Covid 19 pneumonia and patient also has a some small bilateral pulmonary emboli. Patient is presently on Airvo. Patient is also on IV heparin. Will check for insurance authorization for EliquKixer. Patient had 2 negative covid test. Urinary Legionella antigen and mycoplasma IgM antibody are pending at this time patient will be started on levofloxacin empirically for now. Constitutional: Denied any fatigue denied any fever. Cardio vascular: denied any chest pain, palpitations Gastrointestinal denied any nausea vomiting Pulmonary: She is still significantly short of breath Neurologic denied any new focal deficits All inpatient medications were reviewed and appropriate changes in these medications as dictated in the interval history and assessment and plan. Objective - Vital Signs Vital signs: Vital Signs Temp 98.3 F 10/16/20 09:59 Pulse 102 H 10/16/20 09:59 Resp 22 10/16/20 09:59 BP 155/96 10/16/20 09:59 Pulse Ox 94 L 10/16/20 09:59 Intake & Output 10/15/20 10/16/20 10/16/20 18:59 06:59 18:59 Intake Total 234.737 Balance 234.737 Weight 104.326 kg Intake: Intake, IV Titration 234.737 Amount Heparin Sod,Pork in 0.45% 234.737 NaCl 25,000 unit In 0.45 % NaCl 1 250ml.bag @ 18 UNITS/KG/HR 18.779 mls/hr IV .[id number] [facility] Rx#: [id number] - Exam PHYSICAL EXAMINATION: GENERAL: The patient is alert and oriented x3, not in any acute distress. Well developed, well nourished. HEENT: Pupils are round and equally reacting to light. EOMI. No scleral icterus. No conjunctival pallor. Normocephalic, atraumatic. No pharyngeal erythema. No thyromegaly. CARDIOVASCULAR: S1 and S2 present. No murmurs, rubs, or gallops. PULMONARY: has diffuse bilateral rhonchi. ABDOMEN: Soft, nontender, nondistended, normoactive bowel sounds. No palpable organomegaly. MUSCULOSKELETAL: No joint swelling or deformity. EXTREMITIES: No cyanosis, clubbing, or pedal edema. NEUROLOGICAL: Gross neurological examination did not reveal any focal deficits. SKIN: No rashes. - Labs CBC & Chem 7: 10/16/20 04:59 10/15/20 19:32 Labs: Abnormal Lab Results - Last 24 Hours (Table) 10/15/20 10/15/20 10/15/20 Range/Units 15:05 15:05 16:05 WBC 12.2 H (3.8-10.6) k/uL Neutrophils # 10.0 H (1.3-7.7) k/uL PT (9.0-12.0) sec INR (<1.2) APTT (22.0-30.0) sec D-Dimer (<0.60) mg/L FEU ABG pH 7.49 H (7.35-7.45) ABG pO2 54 L* (83-108) mmHg ABG HCO3 26 H (21-25) mmol/L ABG Total CO2 28 H (19-24) mmol/L ABG O2 Saturation 88.6 L (94-97) % Potassium 3.4 L (3.5-5.1) mmol/L Glucose 153 H (74-99) mg/dL Ferritin (22.0-322.0) ng/mL AST (17-59) U/L ALT (4-49) U/L Lactate Dehydrogenase (313-618) U/L C-Reactive Protein (<1.0) mg/dL Procalcitonin (0.02-0.09) ng/mL 10/15/20 10/15/20 10/15/20 Range/Units 19:32 19:32 19:32 WBC (3.8-10.6) k/uL Neutrophils # (1.3-7.7) k/uL PT 12.5 H (9.0-12.0) sec INR 1.2 H (<1.2) APTT 116.8 H* (22.0-30.0) sec D-Dimer 15.36 H (<0.60) mg/L FEU ABG pH (7.35-7.45) ABG pO2 (83-108) mmHg ABG HCO3 (21-25) mmol/L ABG Total CO2 (19-24) mmol/L ABG O2 Saturation (94-97) % Potassium (3.5-5.1) mmol/L Glucose 201 H (74-99) mg/dL Ferritin 1485.4 H (22.0-322.0) ng/mL AST 66 H (17-59) U/L ALT 109 H (4-49) U/L Lactate Dehydrogenase 1092 H (313-618) U/L C-Reactive Protein 16.5 H (<1.0) mg/dL Procalcitonin 0.20 H (0.02-0.09) ng/mL 10/16/20 Range/Units 04:59 WBC (3.8-10.6) k/uL Neutrophils # (1.3-7.7) k/uL PT (9.0-12.0) sec INR (<1.2) APTT 52.4 H (22.0-30.0) sec D-Dimer (<0.60) mg/L FEU ABG pH (7.35-7.45) ABG pO2 (83-108) mmHg ABG HCO3 (21-25) mmol/L ABG Total CO2 (19-24) mmol/L ABG O2 Saturation (94-97) % Potassium (3.5-5.1) mmol/L Glucose (74-99) mg/dL Ferritin (22.0-322.0) ng/mL AST (17-59) U/L ALT (4-49) U/L Lactate Dehydrogenase (313-618) U/L C-Reactive Protein (<1.0) mg/dL Procalcitonin (0.02-0.09) ng/mL Assessment and Plan Plan: -Acute hypoxic respiratory failure: His COVID-19 was negative. atypical pneumonia secondary to Legionella or Mycoplasma cannot be ruled out. There may be some contribution from bilateral pulmonary embolism for his shortness of breath presently on heparin which will be continued, will be switched Eliquis most probably tomorrow. -Hypotension -Depression
[2020-10-16] MEDS: VANCOMYCIN 1,750 MG in SODIUM CHLORIDE 0.9% 500 ML 500 ML IVPB SCH ×2 (17:53→20:16)
[2020-10-16] MEDS: LEVOFLOXACIN 750MG-D5W PMX 750 MG in DEXTROSE/WATER 1 150ML.BAG IVPB SCH (18:10)
[2020-10-16] MEDS: SODIUM CHLORIDE 0.9% 1,000 ML IV SCH (20:15)
--- NOTE | 2020-10-16 22:15 | CONS ---
CONSULTATION DATE OF SERVICE: 10/16/2020 REASON FOR CONSULTATION: Pneumonia, questionable COVID. HISTORY OF PRESENT ILLNESS: The patient is a 50-year-old male presenting to the ER via EMS for evaluation of shortness of breath and fever. Apparently the patient mentioning he started getting sick about 2 weeks ago. Symptoms have been mostly fever and shortness of breath. He did have a cough, but no worsening or any sputum production. The patient was evaluated at [facility]. He did have a Lim test which came back negative. The patient subsequently was evaluated in the ER, where the patient was pneumonia and was treated with a prescription for Zithromax. However, the patient mentioned he did not have any improvement, and has currently come to the hospital with increasing shortness of breath on minimal exertion even after rest. He did have a cough, mild to moderate in intensity, but not bringing up any sputum. No pleuritic chest pain. No nausea, no vomiting, no abdominal pain or any diarrhea. With these symptoms, the patient was evaluated by the ER physician. On arrival in the ER, the patient was afebrile, and no fever has been recorded since then. The patient was hypoxic with oxygen saturations of 76% on room air. He is currently on high-flow nasal cannula oxygen, saturating around 93%. The patient did have a white count of 12.2 with a left shift. No lymphopenia. He did have elevated D-dimer of 15.36. The patient had normal creatinine. Liver enzymes are elevated. Ferritin, LDH, CRP were elevated. Procalcitonin was 0.20. The patient did have negative Lim PCR as well as negative RSV and influenza. The patient did have a chest x-ray showing chronic changes without evidence of acute cardiopulmonary disease. The patient did have a CT angiogram of the chest that did show evidence of bilateral PE and diffuse airspace infiltrate compatible with COVID-19 pneumonia. The patient was started on IV heparin, also started on Levaquin. Infectious Disease was consulted with concern about possible COVID pneumonia. REVIEW OF SYSTEMS: Positive points have been mentioned in the HPI. Rest of the systems are negative. PAST MEDICAL HISTORY: Hypertension, pneumonia, seasonal allergies. PAST SURGICAL HISTORY: Colonoscopy. No other major surgery. SOCIAL HISTORY: No history of smoking. Occasionally drinks. No drug use. FAMILY HISTORY: Mother with history of PE. Father with history of congestive heart failure and diabetes mellitus. ALLERGIES: AMOXICILLIN. MEDICATIONS: The patient is currently on Tylenol, Xanax, vitamin C, Tessalon Perles, dexamethasone, Lexapro, heparin per weight-based protocol, Levaquin, Zestril, Ativan, Theragran, Narcan, Zofran, zinc. PHYSICAL EXAMINATION: Blood pressure is 168/100 with a pulse of 103, temperature 98.3. He is 93% on 60% FiO2. General description is a middle-aged male lying in bed in no distress. No tachypnea or accessory muscle of respiration use. HEENT: Examination shows no pallor or scleral icterus. Oral mucous membrane is dry. NECK: Trachea is central. LUNGS: Unlabored breathing. Coarse breath sounds at the base bilaterally. No wheeze. HEART: S1, S2. Regular rate and rhythm. ABDOMEN: Soft. No tenderness. No guarding or rigidity. EXTREMITIES: No edema of the feet. SKIN EXAMINATION: No rash or mass palpable. Neurologically the patient is awake, alert, oriented x3. Mood and affect normal. LABS: Hemoglobin 14.5, white count 7.4. Admission white count was 12.2. D-dimer is 15.36, BUN of 18, creatinine 0.73. Serologies were negative. CT report as mentioned above. DIAGNOSTIC IMPRESSION AND PLAN: Patient admitted to hospital with worsening shortness of breath that had been going on for 2 weeks which is likely multifactorial, more likely secondary to bilateral PE that has been seen the patient did have a COVID test. Some of the features are suggestive of the diffuse pneumonia seen on the CT with the elevated inflammatory marker and elevated liver enzymes. However, the patient did have elevated white count and no lymphopenia. That would go against viral pneumonia and possible bacterial pneumonia such as Legionella or mycoplasma. PLAN: 1. Urine for Legionella antigen and mycoplasma serology has been requested. 2. Agree with Levaquin at this point 750 mg daily. 3. Patient to continue with dexamethasone, heparin per weight-based protocol, zinc and ascorbic acid. 4. Will follow his clinical condition and recent investigations to further adjust his medication if needed. Thank you for this consultation. Will follow this patient along with you. MMODL / IJN: [id number] /
[2020-10-16] MEDS: LORazepam 2 MG/ML INJ IV PRN (23:49)
[2020-10-17] MEDS: VANCOMYCIN 1,750 MG in SODIUM CHLORIDE 0.9% 500 ML 500 ML IVPB SCH ×2 (04:23→12:43)
[2020-10-17 05:45] LABS: Mycoplasma IgG Antibody (EIA) 1.99 INDEX (<=0.90); Mycoplasma IgM Antibody 0.45 INDEX (<=0.90)
[2020-10-17] MEDS: ALBUTEROL HFA INHALER INHALATION SCH ×3 (08:42→20:07)
[2020-10-17 09:17] LABS: African American GFR (CKD) >90 (>60 ml/min/1.73 sqM); Non-African American GFR(CKD) >90 (>60 ml/min/1.73 sqM)
--- NOTE | 2020-10-17 09:29 | P.PN ---
Subjective 50-year-old that male admitted for acute hypoxic respiratory failure which was initially believed to be secondary to Covid 19 pneumonia and patient also has a some small bilateral pulmonary emboli. Patient is presently on Airvo. Patient is also on IV heparin. Will check for insurance authorization for Eliqu[employer]Farm. Patient had 2 negative covid test. Urinary Legionella antigen and mycoplasma IgM antibody are pending at this time patient will be started on levofloxacin empirically for now. 10/17/2020 Patient the started having symptoms about 2 weeks ago and patient was tested for Covid about 9 days ago which was negative. Patient to urinary Legionella antigen is negative and mycoplasma IgM antibodies negative as well etiology of his atypical pneumonia is not clear although Covid 19 or other atypical pneumonias cannot be ruled out because of that reason we will continue with the Levaquin along with Decadron. Patient remains on Airvo. Constitutional: Denied any fatigue denied any fever. Cardio vascular: denied any chest pain, palpitations Gastrointestinal denied any nausea vomiting Pulmonary: She is still significantly short of breath Neurologic denied any new focal deficits All inpatient medications were reviewed and appropriate changes in these medications as dictated in the interval history and assessment and plan. Objective - Vital Signs Vital signs: Vital Signs Temp 97.9 F 10/17/20 04:15 Pulse 80 10/17/20 04:15 Resp 26 H 10/17/20 04:15 BP 150/90 10/17/20 04:15 Pulse Ox 97 10/17/20 04:15 Intake & Output 10/16/20 10/17/20 10/17/20 18:59 06:59 18:59 Intake Total 250 Output Total 150 Balance 100 Weight 104 kg Intake: Intake, IV Titration 250 Amount Heparin Sod,Pork in 0.45% 250 NaCl 25,000 unit In 0.45 % NaCl 1 250ml.bag @ 18 UNITS/KG/HR 18.779 mls/hr IV .[id number] [facility] Rx#: [id number] Output: Urine 150 Other: Voiding Method Urinal - Exam PHYSICAL EXAMINATION: GENERAL: The patient is alert and oriented x3, not in any acute distress. Well developed, well nourished. HEENT: Pupils are round and equally reacting to light. EOMI. No scleral icterus. No conjunctival pallor. Normocephalic, atraumatic. No pharyngeal erythema. No thyromegaly. CARDIOVASCULAR: S1 and S2 present. No murmurs, rubs, or gallops. PULMONARY: has diffuse bilateral rhonchi. ABDOMEN: Soft, nontender, nondistended, normoactive bowel sounds. No palpable organomegaly. MUSCULOSKELETAL: No joint swelling or deformity. EXTREMITIES: No cyanosis, clubbing, or pedal edema. NEUROLOGICAL: Gross neurological examination did not reveal any focal deficits. SKIN: No rashes. - Labs CBC & Chem 7: 10/16/20 04:59 10/17/20 08:44 Labs: Abnormal Lab Results - Last 24 Hours (Table) 10/15/20 10/15/20 10/16/20 Range/Units 19:32 19:32 13:10 APTT 46.4 H (22.0-30.0) sec Creatinine (0.66-1.25) mg/dL Ferritin 1485.4 H (22.0-322.0) ng/mL Mycoplasma pneumon IgG 1.99 H (<=0.90) INDEX 10/17/20 Range/Units 08:44 APTT (22.0-30.0) sec Creatinine 0.65 L (0.66-1.25) mg/dL Ferritin (22.0-322.0) ng/mL Mycoplasma pneumon IgG (<=0.90) INDEX Microbiology - Last 24 Hours (Table) 10/15/20 19:32 Blood Culture - Preliminary Blood No Growth after 24 hours 10/16/20 06:19 Urine Culture - Preliminary Urine,Voided Assessment and Plan Plan: -Acute hypoxic respiratory failure: His COVID-19 was negative. atypical pneumonia secondary to Legionella or Mycoplasma A2. Patient remains on levofloxacin.. There may be some contribution from bilateral pulmonary embolism for his shortness of breath presently on heparin which will be continued, will be switched Eliquis . -Hypotension -Depression
[2020-10-17] MEDS: APIXABAN 5 MG TAB PO SCH ×2 (10:32→20:38)
[2020-10-17] MEDS: lisinopriL 20 MG TAB PO SCH (10:33)
[2020-10-17] MEDS: ASCORBIC ACID 500 MG TAB PO SCH (10:33)
[2020-10-17] MEDS: ESCITALOPRAM 10 MG TAB PO SCH (10:33)
[2020-10-17] MEDS: CHOLECALCIFEROL 25 MCG (1000 IU) TABLET PO SCH (10:33)
[2020-10-17] MEDS: MULTIVITAMINS, THERA 1 EACH TAB PO SCH (10:33)
[2020-10-17] MEDS: dexAMETHasone 2 MG TAB PO SCH (10:33)
[2020-10-17] MEDS: ZINC SULFATE 220 MG CAP PO SCH (10:33)
[2020-10-17] MEDS: HEPARIN SOD,PORK IN 0.45% NACL 25,000 UNIT in 0.45% NACL 1 250ML.BAG IV SCH (11:32)
--- NOTE | 2020-10-17 15:09 | P.PN ---
Subjective Progress Note Date: 10/17/20 Principal diagnosis: Respiratory failure. Pulmonary consult dated 10/16/2020. 50-year-old male, that was brought into the emergency room by EMS. He was seen there on October 15 by one of the ER physician. His complaints included shortness of breath, which could worsen over the last number of days. The patient hasn't been feeling well for weeks. The patient apparently tested recently at one of the urgent care centers and was negative for coronavirus. Here in our emergency room, he was also tested and was found to be negative. Currently, his father is in the hospital with coronavirus pneumonia. The patient had a computed tomography scan of the chest which not only showed small bilateral pulmonary emboli, but show typical bilateral groundglass opacities consistent with COVID 19 pneumonia. The patient complains of shortness of breath, cough, chest congestion, fever, chills, and muscle aches. Currently, he's on BiPAP with settings of IPAP 14, EPAP 7, and 100%. He is also getting IV heparin. In addition, there is an AIRVO device in his room set up at 60 L/m and 90% FiO2. His medical history is positive for hypertension. White count 7.4, hemoglobin 14.5, hematocrit 43.2, platelet count 316,000. PTT is 52.4. D-dimer is 15.36. Blood gases show a PaO2 of 54, PaCO2 35, and a pH is 7.49. Electrolyte profile is essentially normal. AST 66 LC 109 LDH 1092 troponin normal and C-reactive protein 16.5. Lim virus testing here was negative as mentioned above. Chest x-ray shows bilateral infiltrates, and computed tomography scan showed groundglass opacities as well as small bilateral pulmonary emboli. Progress note dated 10/17/2020. 50-year-old male seen yesterday in consultation. He was seen on October 15 in the ER. It shortness of breath, which had worsened over the last few days. The patient hasn't been feeling well for weeks. The patient's father is currently in the hospital with coronavirus pneumonia. His clinical picture, and CAT scan are consistent with that diagnosis. Currently, the patient is on AIRVO, at 60 L/m and 90%. He is feeling a bit better today. He is also getting saline at 20 mL an hour. Laboratory data today includes a PTT of 46.7, and a creatinine of 0.65. No new chest x-ray as noted. Objective - Vital Signs Vital signs: Vital Signs Temp 98.2 F 10/17/20 12:00 Pulse 84 10/17/20 12:00 Resp 24 10/17/20 12:00 BP 137/80 10/17/20 12:00 Pulse Ox 96 10/17/20 12:00 Intake & Output 10/16/20 10/17/20 10/17/20 18:59 06:59 18:59 Intake Total 250 961.878 Output Total 150 1225 Balance 100 -263.122 Weight 104 kg Intake: IV 10 Invasive Line 1 10 Intake, IV Titration 250 171.878 Amount Heparin Sod,Pork in 0.45% 250 171.878 NaCl 25,000 unit In 0.45 % NaCl 1 250ml.bag @ 18 UNITS/KG/HR 18.779 mls/hr IV .[id number] [facility] Rx#: [id number] Oral 780 Output: Urine 150 1225 Other: Voiding Method Urinal # Bowel Movements 1 - Exam No acute distress, oriented 3. Currently on AIRVO. Saturations 96%. No use of accessory muscles or conversational dyspnea. HEENT examination is grossly unremarkable. Neck supple. Full range of motion. No adenopathy thyromegaly or neck vein distention. Cardiovascular examination reveals regular rhythm rate. S1-S2 normal. No S3 or S4. No discernible murmur noted. Heart sounds are distant. Heart rate 84 bpm. Lungs reveal diffuse bilateral rhonchi. Breath sounds are diminished. No wheezes. A few scattered crackles. The patient coughs on deep inspiration. Breath sounds are equal bilaterally. Abdomen soft bowel sounds are heard. No masses or tenderness. Extremities are intact. No cyanosis clubbing or edema. Skin is without rash or lesion. Neurologic examination is brief but nonfocal. - Labs CBC & Chem 7: 10/16/20 04:59 10/17/20 08:44 Labs: Abnormal Lab Results - Last 24 Hours (Table) 10/15/20 10/17/20 10/17/20 Range/Units 19:32 08:44 08:44 APTT 46.7 H (22.0-30.0) sec Creatinine 0.65 L (0.66-1.25) mg/dL Mycoplasma pneumon IgG 1.99 H (<=0.90) INDEX Microbiology - Last 24 Hours (Table) 10/16/20 06:19 Urine Culture - Final Urine,Voided 10/16/20 23:50 Sputum Culture - Preliminary Sputum 10/15/20 19:32 Blood Culture - Preliminary Blood No Growth after 24 hours Assessment and Plan Assessment: Acute hypoxemic respiratory failure, multifactorial, in part related to likely COVID 19 pneumonitis/pneumonia, as well as small bilateral pulmonary emboli. History of hypertension. Elevated inflammatory marker secondary to coronavirus infection. Hypercoagulable state secondary to coronavirus infection. Plan: Plan dated 10/16/2020. The patient can be admitted to the third floor. The patient is currently on IV heparin. The patient continues either BiPAP or AIRVO. The patient should get vitamin C, vitamin D3, and zinc, as well as Decadron. Additional recommendations and suggestions are forthcoming. Prognosis is guarded. The patient could be converted to a factor X a inhibitor later today or tomorrow. The pulmonary emboli a rather small and likely not the major etiology of the patient's hypoxemia. Additional recommendations and suggestions are forthcoming. Plan dated 10/17/2020. Currently, the patient is on AIRVO, with settings of 60 L/m, and 90%. He is getting saline at 20 mL an hour. Clinically he looks stable and he states that he is feeling better. His medications are reviewed. He is on an albuterol inha ler, vitamin C, vitamin D3, zinc, Decadron, and a factor X a inhibitor, i.e. Eliquis. Additional recommendations and suggestions are forthcoming. We will continue to wean down the oxygen levels. The pulmonary emboli are rather small, and not likely to blame for the patient significant hypoxemic respiratory failure. Additional recommendations and suggestions are forthcoming. Prognosis is guarded. Time with Patient: Less than 30
[2020-10-17] MEDS: SODIUM CHLORIDE 0.9% 1,000 ML IV SCH (16:11)
[2020-10-17] MEDS: LEVOFLOXACIN 750MG-D5W PMX 750 MG in DEXTROSE/WATER 1 150ML.BAG IVPB SCH (16:11)
--- NOTE | 2020-10-17 17:20 | PN ---
PROGRESS NOTE DATE OF SERVICE: 10/17/2020 REASON FOR FOLLOWUP: Pneumonia. INTERVAL HISTORY: The patient is currently afebrile. The patient mentioned he is breathing slightly comfortably, especially when he is in bed; however, any movement, getting up and around gives him more shortness of breath. Denies having any chest pain. He did have a cough; no worsening cough or sputum production. No vomiting. No abdominal pain or diarrhea. PHYSICAL EXAMINATION: Blood pressure 154/82 with a pulse of 75, temperature 98.6. He is 97% on 90% AIRVO. General description is a middle-aged male lying in bed in no distress. RESPIRATORY SYSTEM: Unlabored breathing with decreased intensity of breath sounds. No wheeze. HEART: S1, S2. Regular rate and rhythm. ABDOMEN: Soft. No tenderness. LABS: Hemoglobin is 14.5, white count 7.4, BUN of 8, creatinine 0.73. COVID testing is negative. Urine did show legionella is negative. Mycoplasma IgM negative. IgG was positive. Sputum culture so far pending. DIAGNOSTIC IMPRESSION AND PLAN: Patient with acute respiratory failure which is likely multifactorial in this patient who did have bilateral pulmonary embolism plus/minus pneumonia with concern for possible COVID. He did have multiple COVID tests that have been negative. He also was negative for Legionella and mycoplasma. Recommend continuing the patient on dexamethasone, Eliquis, Levaquin. Clinical suspicion low for MRSA pneumonia. Vancomycin will be discontinued to decrease risk of nephrotoxicity. Continue with supportive care. MMODL / IJN: [id number] /
[2020-10-17] MEDS: LORazepam 2 MG/ML INJ IV PRN (20:39)
[2020-10-18] MEDS: ALBUTEROL HFA INHALER INHALATION SCH ×3 (07:47→20:34)
[2020-10-18] MEDS: ASCORBIC ACID 500 MG TAB PO SCH (08:49)
[2020-10-18] MEDS: CHOLECALCIFEROL 25 MCG (1000 IU) TABLET PO SCH (08:49)
[2020-10-18] MEDS: APIXABAN 5 MG TAB PO SCH ×2 (08:49→20:55)
[2020-10-18] MEDS: dexAMETHasone 2 MG TAB PO SCH (08:50)
[2020-10-18] MEDS: lisinopriL 20 MG TAB PO SCH (08:50)
[2020-10-18] MEDS: MULTIVITAMINS, THERA 1 EACH TAB PO SCH (08:50)
[2020-10-18] MEDS: ZINC SULFATE 220 MG CAP PO SCH (08:50)
[2020-10-18] MEDS: ESCITALOPRAM 10 MG TAB PO SCH (08:50)
--- NOTE | 2020-10-18 09:29 | P.PN ---
Subjective 50-year-old that male admitted for acute hypoxic respiratory failure which was initially believed to be secondary to Covid 19 pneumonia and patient also has a some small bilateral pulmonary emboli. Patient is presently on Airvo. Patient is also on IV heparin. Will check for insurance authorization for [employer]. Patient had 2 negative covid test. Urinary Legionella antigen and mycoplasma IgM antibody are pending at this time patient will be started on levofloxacin empirically for now. 10/17/2020 Patient the started having symptoms about 2 weeks ago and patient was tested for Covid about 9 days ago which was negative. Patient to urinary Legionella antigen is negative and mycoplasma IgM antibodies negative as well etiology of his atypical pneumonia is not clear although Covid 19 or other atypical pneumonias cannot be ruled out because of that reason we will continue with the Levaquin along with Decadron. Patient remains on Airvo. 10/18/2020 Patient is feeling much better clinically. Saturating well at 97% on 90% FiO2 and 60 L of oxygen on Aivo. Constitutional: Denied any fatigue denied any fever. Cardio vascular: denied any chest pain, palpitations Gastrointestinal denied any nausea vomiting Pulmonary: She is still significantly short of breath Neurologic denied any new focal deficits All inpatient medications were reviewed and appropriate changes in these medications as dictated in the interval history and assessment and plan. Objective - Vital Signs Vital signs: Vital Signs Temp 98.2 F 10/18/20 08:00 Pulse 84 10/18/20 08:00 Resp 18 10/18/20 08:00 BP 160/86 10/18/20 08:00 Pulse Ox 97 10/18/20 08:00 Intake & Output 10/17/20 10/18/20 10/18/20 18:59 06:59 18:59 Intake Total 1161.878 20 10 Output Total 1225 800 Balance -63.122 -780 10 Weight 107 kg Intake: IV 10 20 10 Invasive Line 1 10 20 10 Intake, IV Titration 171.878 Amount Heparin Sod,Pork in 0.45% 171.878 NaCl 25,000 unit In 0.45 % NaCl 1 250ml.bag @ 18 UNITS/KG/HR 18.779 mls/hr IV .[id number] [facility] Rx#: [id number] Oral 980 Output: Urine 1225 800 Other: Voiding Method Urinal # Voids 1 # Bowel Movements 1 - Exam PHYSICAL EXAMINATION: GENERAL: The patient is alert and oriented x3, not in any acute distress. Well developed, well nourished. HEENT: Pupils are round and equally reacting to light. EOMI. No scleral icterus. No conjunctival pallor. Normocephalic, atraumatic. No pharyngeal erythema. No thyromegaly. CARDIOVASCULAR: S1 and S2 present. No murmurs, rubs, or gallops. PULMONARY: has diffuse bilateral rhonchi. ABDOMEN: Soft, nontender, nondistended, normoactive bowel sounds. No palpable organomegaly. MUSCULOSKELETAL: No joint swelling or deformity. EXTREMITIES: No cyanosis, clubbing, or pedal edema. NEUROLOGICAL: Gross neurological examination did not reveal any focal deficits. SKIN: No rashes. - Labs CBC & Chem 7: 10/16/20 04:59 10/17/20 08:44 Labs: Abnormal Lab Results - Last 24 Hours (Table) 10/17/20 Range/Units 08:44 APTT 46.7 H (22.0-30.0) sec Microbiology - Last 24 Hours (Table) 10/15/20 19:32 Blood Culture - Preliminary Blood No Growth after 48 hours 10/16/20 23:50 Gram Stain - Preliminary Sputum Sputum Culture - Preliminary 10/16/20 06:19 Urine Culture - Final Urine,Voided Assessment and Plan Plan: -Acute hypoxic respiratory failure: His COVID-19 was negative. Pretty of at ypical pneumonia secondary to Legionella or Mycoplasma although urinary Legionella antigen is negative and mycoplasma IgM antibody is negative . Patient remains on levofloxacin.. There may be some contribution from bilateral pulmonary embolism for his shortness of breath on Eliquis . Son same amount of oxygen - although clinically feeling better .Hypotension -Depression
[2020-10-18 11:26] LABS: ALT 144 U/L (4-49); African American GFR (CKD) >90 (>60 ml/min/1.73 sqM); Anion Gap 6 mmol/L; Blood Urea Nitrogen 19 mg/dL (9-20); Calcium 8.9 mg/dL (8.4-10.2); Carbon Dioxide 23 mmol/L (22-30); Chloride 105 mmol/L (98-107); Glucose 216 mg/dL (74-99); Non-African American GFR(CKD) >90 (>60 ml/min/1.73 sqM); Sodium 134 mmol/L (137-145); Total Bilirubin 1.1 mg/dL (0.2-1.3)
[2020-10-18 11:38] LABS: Albumin 3.3 g/dL (3.5-5.0); Potassium 4.4 mmol/L (3.5-5.1); Total Protein 6.2 g/dL (6.3-8.2)
[2020-10-18 11:39] LABS: AST 106 U/L (17-59); Alkaline Phosphatase 61 U/L (38-126)
--- NOTE | 2020-10-18 13:39 | P.PN ---
Subjective Progress Note Date: 10/18/20 Principal diagnosis: Respiratory failure. Pulmonary consult dated 10/16/2020. 50-year-old male, that was brought into the emergency room by EMS. He was seen there on October 15 by one of the ER physician. His complaints included shortness of breath, which could worsen over the last number of days. The patient hasn't been feeling well for weeks. The patient apparently tested recently at one of the urgent care centers and was negative for coronavirus. Here in our emergency room, he was also tested and was found to be negative. Currently, his father is in the hospital with coronavirus pneumonia. The patient had a computed tomography scan of the chest which not only showed small bilateral pulmonary emboli, but show typical bilateral groundglass opacities consistent with COVID 19 pneumonia. The patient complains of shortness of breath, cough, chest congestion, fever, chills, and muscle aches. Currently, he's on BiPAP with settings of IPAP 14, EPAP 7, and 100%. He is also getting IV heparin. In addition, there is an AIRVO device in his room set up at 60 L/m and 90% FiO2. His medical history is positive for hypertension. White count 7.4, hemoglobin 14.5, hematocrit 43.2, platelet count 316,000. PTT is 52.4. D-dimer is 15.36. Blood gases show a PaO2 of 54, PaCO2 35, and a pH is 7.49. Electrolyte profile is essentially normal. AST 66 LC 109 LDH 1092 troponin normal and C-reactive protein 16.5. Lim virus testing here was negative as mentioned above. Chest x-ray shows bilateral infiltrates, and computed tomography scan showed groundglass opacities as well as small bilateral pulmonary emboli. Progress note dated 10/17/2020. 50-year-old male seen yesterday in consultation. He was seen on October 15 in the ER. It shortness of breath, which had worsened over the last few days. The patient hasn't been feeling well for weeks. The patient's father is currently in the hospital with coronavirus pneumonia. His clinical picture, and CAT scan are consistent with that diagnosis. Currently, the patient is on AIRVO, at 60 L/m and 90%. He is feeling a bit better today. He is also getting saline at 20 mL an hour. Laboratory data today includes a PTT of 46.7, and a creatinine of 0.65. No new chest x-ray as noted. Progress note dated 10/18/2020. 50-year-old male, seen a couple days ago in consultation, in the emergency department. The patient complained of shortness of breath, which had worsened over the last few days. The patient hasn't been feeling well for "weeks". The patient's father is currently in the hospital with coronavirus pneumonia. The patient's clinical picture, and CAT scan are also consistent with that diagn osis. Currently, the patient remains on AIRVO, at 60 L/m, and FiO2 of 90%. His saturations are 97%. Is getting saline at 20 mL an hour. Patient states that he does feel better. Laboratory data today includes sodium 134, potassium 4.4, chlorides 105, CO2 23, anion gap 6, BUN and creatinine were 19 and 0.61. Objective - Vital Signs Vital signs: Vital Signs Temp 97.9 F 10/18/20 12:00 Pulse 90 10/18/20 12:00 Resp 18 10/18/20 12:00 BP 142/81 10/18/20 12:00 Pulse Ox 98 10/18/20 12:00 Intake & Output 10/17/20 10/18/20 10/18/20 18:59 06:59 18:59 Intake Total 1161.878 20 550 Output Total 1225 800 400 Balance -63.122 -780 150 Weight 107 kg Intake: IV 10 20 10 Invasive Line 1 10 20 10 Intake, IV Titration 171.878 Amount Heparin Sod,Pork in 0.45% 171.878 NaCl 25,000 unit In 0.45 % NaCl 1 250ml.bag @ 18 UNITS/KG/HR 18.779 mls/hr IV .[id number] [facility] Rx#: [id number] Oral 980 540 Output: Urine 1225 800 400 Other: Voiding Method Urinal # Voids 1 # Bowel Movements 1 1 - Exam No acute distress, oriented 3. Currently on AIRVO. Saturations 96%. No use of accessory muscles or conversational dyspnea. HEENT examination is grossly unremarkable. Neck supple. Full range of motion. No adenopathy thyromegaly or neck vein distention. Cardiovascular examination reveals regular rhythm rate. S1-S2 normal. No S3 or S4. No discernible murmur noted. Heart sounds are distant. Heart rate 90 bpm. Lungs reveal diffuse bilateral rhonchi. Breath sounds are diminished. No wheezes. A few scattered crackles. The patient coughs on deep inspiration. Breath sounds are equal bilaterally. Today's exam is unchanged. Abdomen soft bowel sounds are heard. No masses or tenderness. Extremities are intact. No cyanosis clubbing or edema. Skin is without rash or lesion. Neurologic examination is brief but nonfocal. - Labs CBC & Chem 7: 10/16/20 04:59 10/18/20 10:55 Labs: Abnormal Lab Results - Last 24 Hours (Table) 10/18/20 Range/Units 10:55 Sodium 134 L (137-145) mmol/L Creatinine 0.61 L (0.66-1.25) mg/dL Glucose 216 H (74-99) mg/dL AST 106 H (17-59) U/L ALT 144 H (4-49) U/L Total Protein 6.2 L (6.3-8.2) g/dL Albumin 3.3 L (3.5-5.0) g/dL Microbiology - Last 24 Hours (Table) 10/15/20 19:32 Blood Culture - Preliminary Blood No Growth after 48 hours 10/16/20 23:50 Gram Stain - Preliminary Sputum Sputum Culture - Preliminary 10/16/20 06:19 Urine Culture - Final Urine,Voided Assessment and Plan Assessment: Acute hypoxemic respiratory failure, multifactorial, in part related to likely C OVID 19 pneumonitis/pneumonia, as well as small bilateral pulmonary emboli. History of hypertension. Elevated inflammatory marker secondary to coronavirus infection. Hypercoagulable state secondary to coronavirus infection. Plan: Plan dated 10/16/2020. The patient can be admitted to the third floor. The patient is currently on IV heparin. The patient continues either BiPAP or AIRVO. The patient should get vitamin C, vitamin D3, and zinc, as well as Decadron. Additional recommendations and suggestions are forthcoming. Prognosis is guarded. The pa tient could be converted to a factor X a inhibitor later today or tomorrow. The pulmonary emboli a rather small and likely not the major etiology of the patient's hypoxemia. Additional recommendations and suggestions are forthcoming. Plan dated 10/17/2020. Currently, the patient is on AIRVO, with settings of 60 L/m, and 90%. He is getting saline at 20 mL an hour. Clinically he looks stable and he states that he is feeling better. His medications are reviewed. He is on an albuterol inhaler, vitamin C, vitamin D3, zinc, Decadron, and a factor X a inhibitor, i.e. Eliquis. Additional recommendations and suggestions are forthcoming. We will continue to wean down the oxygen levels. The pulmonary emboli are rather small, and not likely to blame for the patient significant hypoxemic respiratory failure. Additional recommendations and suggestions are forthcoming. Prognosis is guarded. Plan dated 10/18/2020. Currently, the patient remains on AIRVO. It appears, that his saturations are excellent, and he can probably be weaned down in terms of his FiO2, and flow rate. The patient does feel better. His saturations are 98%. Medications are reviewed. IV heparin was discontinued in favor of Eliquis. The rest of the medications are appropriate including Decadron, vitamin C, vitamin D3, and zinc. Pro-calcitonin level is 0.20. The likelihood of bacterial infection in my opi nion is very low. Antibiotics can probably be discontinued. We will continue to follow. Additional recommendations and suggestions are forthcoming Time with Patient: Less than 30
--- NOTE | 2020-10-18 15:14 | CDI ---
Documentation Clarification Form Date: 10/18/2020 02:46:11 PM From: Marina Carrion RN, CCDS Admit Date: 10/15/2020 04:31:00 PM Patient Name: Jay Barnett Visit Number: [id number] Discharge Date: ATTENTION: The Clinical Documentation Specialists (CDI) and [facility] Coding Staff appreciate your assistance in clarifying documentation. Please respond to the clarification below the line at the bottom and electronically sign. The CDI & [facility] Coding staff will review the response and follow-up if needed. Please note: Queries are made part of the Legal Health Record. If you have any questions, please contact the author of this message via ITS. Dr. Crsital Johnson The COVID-19 test obtained on 10/15 and 10/16, was reported as Negative. 10/18 Pulmonary consult and progress note: Acute hypoxic respiratory failure, multifactorial, in part related to likely COVID-19 pneumonitis/pneumonia, as well as small bilateral pneumonia emboli. History/risk factors: Hypertension, Pneumonia, seasonal allergies Clinical Indicators: 50-year-old male present to ED on 10/15 with complaint of shortness of breath. He had elevated inflammatory markers secondary to coronavirus infection per H/P and pulmonary consult. 10/15 CXR: bilateral pneumonia suggestive of COVID-19. 10/15 Chest CTA: Bilateral pulmonary embolism as well as bilateral lesions fairly typical of COVID19 pneumonia. 10/15 Vital signs: 130/86 107 40 98.3 76 % RA 85 % on 6/L NC 90% 10 L High Flow. 10/15 Labs WBC 12.2, Ferritin 1485.4, AKH 1092, C - reactive protein 16.5, Procalcitonin 0.20, Coronavirus (PCR) Not Detected Treatment: Telemetry monitoring Monitor O2 Sat's (titrate) Vitamin C 500MG PO Daily Vitamin D3 25 MCG PO Daily Dexamethasone 6 MG PO Daily Zinc Sulfate 220 MG PO Daily 10/17 ID: Acute respiratory failure multifactorial in this patient who did have bilateral pulmonary embolism plus/minus pneumonia with concern for possible COVID. He did have multiple COVID tests that have been negative. He was negative for Legionella and mycoplasma. Recommend continue dexamethasone, Eliquis, Levaquin Please clarify the COVID-19 status: [ ] False negative, treating for COVID-19 infection [ ] COVID-19 ruled out [ ] Other, please specify (Template Last Revised: August 2020) I have no idea MTDD
[2020-10-18] MEDS ORDERED: LEVOFLOXACIN 750 MG TAB PO SCH (16:00)
[2020-10-18] MEDS: SODIUM CHLORIDE 0.9% 1,000 ML IV SCH (16:27)
--- NOTE | 2020-10-18 18:27 | PN ---
PROGRESS NOTE DATE OF SERVICE: 10/18/2020 REASON FOR FOLLOWUP: Pneumonia. INTERVAL HISTORY: The patient is currently afebrile. The patient is breathing comfortably slightly compared to yesterday. The patient denies having any chest pain. Minimal cough but no sputum production. No abdominal pain or diarrhea. PHYSICAL EXAMINATION: Blood pressure 150/85, pulse of 80, temperature 98.1. He is 98% on 50% FiO2. General description is a middle-aged male lying in bed in no distress. RESPIRATORY SYSTEM: Unlabored breathing. Clear to auscultation anteriorly. HEART: S1, S2. Regular rate and rhythm. ABDOMEN: Soft. No tenderness. LABS: BUN of 19, creatinine 0.61. Liver enzymes are mildly elevated. DIAGNOSTIC IMPRESSION AND PLAN: Patient with acute respiratory failure and hypoxemia which is multifactorial in this patient who did have bilateral pulmonary emboli, plus/minus a component of COVID, possibly bacterial pneumonia. Patient is currently covered with Eliquis, dexamethasone, Lovenox, Levaquin; to continue in view of clinical response and monitor his clinical course closely. MMODL / IJN: [id number] /
[2020-10-18] MEDS: LORazepam 2 MG/ML INJ IV PRN (20:55)
--- NOTE | 2020-10-19 07:44 | XR ---
EXAMINATION TYPE: XR chest 1V portable DATE OF EXAM: 10/19/2020 HISTORY: Shortness of breath. COMPARISON: 10/15/2020 TECHNIQUE: Single view of the chest is submitted. FINDINGS: Demonstrated are scattered senescent parenchymal change. Scattered airspace infiltrates persist although there is significant interval improvement The heart is stable. Hilar and mediastinal structures are within normal limits. Degenerative changes are seen of the dorsal spine. IMPRESSION: 1. Scattered airspace infiltrates persist although there is significant interval improvement
[2020-10-19] MEDS: ALBUTEROL HFA INHALER INHALATION SCH ×3 (08:02→20:53)
[2020-10-19 08:21] LABS: African American GFR (CKD) >90 (>60 ml/min/1.73 sqM); Non-African American GFR(CKD) >90 (>60 ml/min/1.73 sqM)
[2020-10-19] MEDS: dexAMETHasone 2 MG TAB PO SCH (09:03)
[2020-10-19] MEDS: CHOLECALCIFEROL 25 MCG (1000 IU) TABLET PO SCH (09:03)
[2020-10-19] MEDS: ASCORBIC ACID 500 MG TAB PO SCH (09:03)
[2020-10-19] MEDS: APIXABAN 5 MG TAB PO SCH ×2 (09:03→20:03)
[2020-10-19] MEDS: MULTIVITAMINS, THERA 1 EACH TAB PO SCH (09:04)
[2020-10-19] MEDS: ZINC SULFATE 220 MG CAP PO SCH (09:04)
[2020-10-19] MEDS: ESCITALOPRAM 10 MG TAB PO SCH (09:04)
[2020-10-19] MEDS: lisinopriL 20 MG TAB PO SCH (09:04)
--- NOTE | 2020-10-19 12:34 | P.PN ---
Subjective Progress Note Date: 10/19/20 Principal diagnosis: Respiratory failure. Pulmonary consult dated 10/16/2020. 50-year-old male, that was brought into the emergency room by EMS. He was seen there on October 15 by one of the ER physician. His complaints included shortness of breath, which could worsen over the last number of days. The patient hasn't been feeling well for weeks. The patient apparently tested recently at one of the urgent care centers and was negative for coronavirus. Here in our emergency room, he was also tested and was found to be negative. Currently, his father is in the hospital with coronavirus pneumonia. The patient had a computed tomography scan of the chest which not only showed small bilateral pulmonary emboli, but show typical bilateral groundglass opacities consistent with COVID 19 pneumonia. The patient complains of shortness of breath, cough, chest congestion, fever, chills, and muscle aches. Currently, he's on BiPAP with settings of IPAP 14, EPAP 7, and 100%. He is also getting IV heparin. In addition, there is an AIRVO device in his room set up at 60 L/m and 90% FiO2. His medical history is positive for hypertension. White count 7.4, hemoglobin 14.5, hematocrit 43.2, platelet count 316,000. PTT is 52.4. D-dimer is 15.36. Blood gases show a PaO2 of 54, PaCO2 35, and a pH is 7.49. Electrolyte profile is essentially normal. AST 66 LC 109 LDH 1092 troponin normal and C-reactive protein 16.5. Lim virus testing here was negative as mentioned above. Chest x-ray shows bilateral infiltrates, and computed tomography scan showed groundglass opacities as well as small bilateral pulmonary emboli. Progress note dated 10/17/2020. 50-year-old male seen yesterday in consultation. He was seen on October 15 in the ER. It shortness of breath, which had worsened over the last few days. The patient hasn't been feeling well for weeks. The patient's father is currently in the hospital with coronavirus pneumonia. His clinical picture, and CAT scan are consistent with that diagnosis. Currently, the patient is on AIRVO, at 60 L/m and 90%. He is feeling a bit better today. He is also getting saline at 20 mL an hour. Laboratory data today includes a PTT of 46.7, and a creatinine of 0.65. No new chest x-ray as noted. Progress note dated 10/18/2020. 50-year-old male, seen a couple days ago in consultation, in the emergency department. The patient complained of shortness of breath, which had worsened over the last few days. The patient hasn't been feeling well for "weeks". The patient's father is currently in the hospital with coronavirus pneumonia. The patient's clinical picture, and CAT scan are also consistent with that diagn osis. Currently, the patient remains on AIRVO, at 60 L/m, and FiO2 of 90%. His saturations are 97%. Is getting saline at 20 mL an hour. Patient states that he does feel better. Laboratory data today includes sodium 134, potassium 4.4, chlorides 105, CO2 23, anion gap 6, BUN and creatinine were 19 and 0.61. Progress note dated 10/19/2020. Currently, the patient feels like he is doing better. He's feeling better. He remains on AIRVO, at 45 L/m, and an FiO2 of 50%. His chest x-ray looks i mproved. He is getting saline at 20 mL an hour. The patient clinically looks better. The only new labs today is a creatinine 0.72. Chest x-ray today shows scattered airspace disease, which is significantly improved. Objective - Vital Signs Vital signs: Vital Signs Temp 98.1 F 10/19/20 08:00 Pulse 78 10/19/20 08:00 Resp 18 10/19/20 08:00 BP 156/81 10/19/20 08:00 Pulse Ox 97 10/19/20 08:04 Intake & Output 10/18/20 10/19/20 10/19/20 18:59 06:59 18:59 Intake Total 1280 20 2870 Output Total 400 1000 Balance 880 -980 2870 Weight 104.5 kg Intake: IV 20 20 10 Invasive Line 1 20 20 10 Intake, IV Titration 200 60 Amount Sodium Chloride 0.9% 1, 200 60 000 ml @ 20 mls/hr IV . Q24H [facility] Rx#:[id number] Oral 1060 2800 Output: Urine 400 1000 Other: Voiding Method Urinal Urinal # Bowel Movements 1 1 - Exam No acute distress, oriented 3. Currently on AIRVO. Saturations 97%. No use of accessory muscles or conversational dyspnea. HEENT examination is grossly unremarkable. Neck supple. Full range of motion. No adenopathy thyromegaly or neck vein distention. Cardiovascular examination reveals regular rhythm rate. S1-S2 normal. No S3 or S4. No discernible murmur noted. Heart sounds are distant. Heart rate 78 bpm. Lungs reveal diffuse bilateral rhonchi. Breath sounds are diminished. No wheezes. A few scattered crackles. The patient coughs on deep inspiration. Breath sounds are equal bilaterally. Today's exam is unchanged. Abdomen soft bowel sounds are heard. No masses or tenderness. Extremities are intact. No cyanosis clubbing or edema. Skin is without rash or lesion. Neurologic examination is brief but nonfocal. - Labs CBC & Chem 7: 10/16/20 04:59 10/19/20 07:39 Labs: Microbiology - Last 24 Hours (Table) 10/16/20 23:50 Gram Stain - Final Sputum Sputum Culture - Final 10/15/20 19:32 Blood Culture - Preliminary Blood No Growth after 72 hours Assessment and Plan Assessment: Acute hypoxemic respiratory failure, multifactorial, in part related to likely COVID 19 pneumonitis/pneumonia, as well as small bilateral pulmonary emboli. History of hypertension. Elevated inflammatory marker secondary to coronavirus infection. Hypercoagulable state secondary to coronavirus infection. Plan: Plan dated 10/16/2020. The patient can be admitted to the third floor. The patient is currently on IV heparin. The patient continues either BiPAP or AIRVO. The patient should get vitamin C, vitamin D3, and zinc, as well as Decadron. Additional recommendations and suggestions are forthcoming. Prognosis is guarded. The patient could be converted to a factor X a inhibitor later today or tomorrow. The pulmonary emboli a rather small and likely not the major etiology of the patient's hypoxemia. Additional recommendations and suggestions are forthcoming. Plan dated 10/17/2020. Currently, the patient is on AIRVO, with settings of 60 L/m, and 90%. He is getting saline at 20 mL an hour. Clinically he looks stable and he states that he is feeling better. His medications are reviewed. He is on an albuterol inhaler, vitamin C, vitamin D3, zinc, Decadron, and a factor X a inhibitor, i.e. Eliquis. Additional recommendations and suggestions are forthcoming. We will continue to wean down the oxygen levels. The pulmonary emboli are rather small, and not likely to blame for the patient significant hypoxemic respiratory fail ure. Additional recommendations and suggestions are forthcoming. Prognosis is guarded. Plan dated 10/18/2020. Currently, the patient remains on AIRVO. It appears, that his saturations are excellent, and he can probably be weaned down in terms of his FiO2, and flow rate. The patient does feel better. His saturations are 98%. Medications are reviewed. IV heparin was discontinued in favor of Eliquis. The rest of the medications are appropriate including Decadron, vitamin C, vitamin D3, and zinc. Pro-calcitonin level is 0.20. The likelihood of bacterial infection in my opinion is very low. Antibiotics can probably be discontinued. We will continue to follow. Additional recommendations and suggestions are forthcoming Plan dated 10/19/2020. The patient remains on AIRVO. He is clinically improved, his saturations are better, and his chest x-ray looks improved. The patient feels much less short of breath today. He remains on appropriate medications we Decadron, vitamin C, vitamin D3, and zinc. The patient was transitioned to a factor X a inhibitor. Antibiotics in my opinion he can be discontinued. Additional recommendations and suggestions are forthcoming. Prognosis is guarded. Time with Patient: Less than 30
--- NOTE | 2020-10-19 15:56 | PN ---
PROGRESS NOTE DATE OF SERVICE: 10/19/2020 REASON FOR FOLLOWUP: Pneumonia. INTERVAL HISTORY: The patient is currently afebrile. The patient is breathing comfortably. Denies having any chest pain or shortness of breath. Occasional cough. No abdominal pain or diarrhea. PHYSICAL EXAMINATION: Blood pressure 149/85, pulse of 74, temperature 97.9. He is 96% on 50% FiO2. General description is a middle-aged male lying in bed in no distress. RESPIRATORY SYSTEM: Unlabored breathing. Clear to auscultation anteriorly. HEART: S1, S2. Regular rate and rhythm. ABDOMEN: Soft. No tenderness. LABS: No new labs have been obtained today. DIAGNOSTIC IMPRESSION AND PLAN: Patient with acute respiratory failure, multifactorial, with concern for bilateral pulmonary embolism plus/minus component of infection in this patient who seems to have show overall clinical improvement with the current treatment protocol. He is on dexamethasone, Eliquis, zinc and ascorbic acid. Monitor his clinical course closely. Antibiotic was discontinued by the admitting physician, even though his procalcitonin was slightly elevated. Will be monitored closely. MMODL / IJN: [id number] /
[2020-10-19] MEDS: SODIUM CHLORIDE 0.9% 1,000 ML IV SCH (17:17)
[2020-10-19] MEDS: LORazepam 2 MG/ML INJ IV PRN (21:39)
[2020-10-20] MEDS: ALBUTEROL HFA INHALER INHALATION SCH ×3 (09:14→19:42)
[2020-10-20] MEDS: MULTIVITAMINS, THERA 1 EACH TAB PO SCH (09:37)
[2020-10-20] MEDS: ESCITALOPRAM 10 MG TAB PO SCH (09:37)
[2020-10-20] MEDS: APIXABAN 5 MG TAB PO SCH ×2 (09:37→19:56)
[2020-10-20] MEDS: ASCORBIC ACID 500 MG TAB PO SCH (09:37)
[2020-10-20] MEDS: lisinopriL 20 MG TAB PO SCH (09:37)
[2020-10-20] MEDS: dexAMETHasone 2 MG TAB PO SCH (09:37)
[2020-10-20] MEDS: CHOLECALCIFEROL 25 MCG (1000 IU) TABLET PO SCH (09:37)
[2020-10-20] MEDS: ZINC SULFATE 220 MG CAP PO SCH (09:38)
--- NOTE | 2020-10-20 10:31 | P.PN ---
Subjective Progress Note Date: 10/19/20 Principal diagnosis: Acute hypoxic respiratory failure Atypical pneumonia Suspicious for COVID-19 infection Bilateral pulmonary embolus 50-year-old that male admitted for acute hypoxic respiratory failure which was initially believed to be secondary to Covid 19 pneumonia and patient also has a some small bilateral pulmonary emboli. Patient is presently on Airvo. Patient is also on IV heparin. Will check for insurance authorization for [employer]. Patient had 2 negative covid test. Urinary Legionella antigen and mycoplasma IgM antibody are pending at this time patient will be started on levofloxacin empirically for now. 10/19/2020. Patient is seen and evaluated in room at bedside. Currently, the patient feels like he is doing better; remains on AIRVO, at 45 L/m, and an FiO2 of 50%. His chest x-ray looks improved. He is getting saline at 20 mL an hour. The patient clinically looks better. The only new labs today is a creatinine 0.72. Chest x-ray today shows scattered airspace disease, which is significantly improved. Pulmonary is following and recommending to continue with AIRVO; patient remains on Decadron, vitamin C and vitamin D along with sitting sulfate; patient is recommended oral anticoagulation for hypercoagulable state secondary to Covid 19 infection Objective - Vital Signs Vital signs: Vital Signs Temp 98.1 F 10/19/20 08:00 Pulse 78 10/19/20 08:00 Resp 18 10/19/20 08:00 BP 156/81 10/19/20 08:00 Pulse Ox 97 10/19/20 08:04 Intake & Output 10/18/20 10/19/20 10/19/20 18:59 06:59 18:59 Intake Total 1280 20 2870 Output Total 400 1000 Balance 880 -980 2870 Weight 104.5 kg Intake: IV 20 20 10 Invasive Line 1 20 20 10 Intake, IV Titration 200 60 Amount Sodium Chloride 0.9% 1, 200 60 000 ml @ 20 mls/hr IV . Q24H [facility] Rx#:[id number] Oral 1060 2800 Output: Urine 400 1000 Other: Voiding Method Urinal Urinal # Bowel Movements 1 1 - Exam GENERAL: The patient is alert and oriented x3, not in any acute distress. Well developed, well nourished. HEENT: Pupils are round and equally reacting to light. EOMI. No scleral icterus. No conjunctival pallor. Normocephalic, atraumatic. No pharyngeal erythema. No thyromegaly. CARDIOVASCULAR: S1 and S2 present. No murmurs, rubs, or gallops. PULMONARY: has diffuse bilateral rhonchi. ABDOMEN: Soft, nontender, nondistended, normoactive bowel sounds. No palpable organomegaly. MUSCULOSKELETAL: No joint swelling or deformity. EXTREMITIES: No cyanosis, clubbing, or pedal edema. NEUROLOGICAL: Gross neurological examination did not reveal any focal deficits. SKIN: No rashes. - Labs CBC & Chem 7: 10/16/20 04:59 10/19/20 07:39 Labs: Microbiology - Last 24 Hours (Table) 10/16/20 23:50 Gram Stain - Final Sputum Sputum Culture - Final 10/15/20 19:32 Blood Culture - Preliminary Blood No Growth after 72 hours Assessment and Plan Assessment: -Acute hypoxic respiratory failure: His COVID-19 was negative. Pretty of atypic al pneumonia secondary to Legionella or Mycoplasma although urinary Legionella antigen is negative and mycoplasma IgM antibody is negative . Patient remains on levofloxacin.. There may be some contribution from bilateral pulmonary embolism for his shortness of breath on Eliquis . Son same amount of oxygen - although clinically feeling better .Hypotension -Depression
[2020-10-20 10:44] LABS: HCT 43.9 % (39.0-53.0); HGB 14.6 gm/dL (13.0-17.5); MCH 30.7 pg (25.0-35.0); MCHC 33.2 g/dL (31.0-37.0); MCV 92.5 fL (80.0-100.0); Mean Platelet Volume 7.1; Platelet Count 364 k/uL (150-450); RBC 4.74 m/uL (4.30-5.90); RDW 12.6 % (11.5-15.5); WBC 11.6 k/uL (3.8-10.6)
[2020-10-20 10:59] LABS: African American GFR (CKD) >90 (>60 ml/min/1.73 sqM); Anion Gap 7 mmol/L; Blood Urea Nitrogen 19 mg/dL (9-20); Calcium 8.8 mg/dL (8.4-10.2); Carbon Dioxide 25 mmol/L (22-30); Chloride 99 mmol/L (98-107); Glucose 259 mg/dL (74-99); Non-African American GFR(CKD) >90 (>60 ml/min/1.73 sqM); Sodium 131 mmol/L (137-145)
--- NOTE | 2020-10-20 12:56 | P.PN ---
Subjective Progress Note Date: 10/20/20 Principal diagnosis: Respiratory failure. Pulmonary consult dated 10/16/2020. 50-year-old male, that was brought into the emergency room by EMS. He was seen there on October 15 by one of the ER physician. His complaints included shortness of breath, which could worsen over the last number of days. The patient hasn't been feeling well for weeks. The patient apparently tested recently at one of the urgent care centers and was negative for coronavirus. Here in our emergency room, he was also tested and was found to be negative. Currently, his father is in the hospital with coronavirus pneumonia. The patient had a computed tomography scan of the chest which not only showed small bilateral pulmonary emboli, but show typical bilateral groundglass opacities consistent with COVID 19 pneumonia. The patient complains of shortness of breath, cough, chest congestion, fever, chills, and muscle aches. Currently, he's on BiPAP with settings of IPAP 14, EPAP 7, and 100%. He is also getting IV heparin. In addition, there is an AIRVO device in his room set up at 60 L/m and 90% FiO2. His medical history is positive for hypertension. White count 7.4, hemoglobin 14.5, hematocrit 43.2, platelet count 316,000. PTT is 52.4. D-dimer is 15.36. Blood gases show a PaO2 of 54, PaCO2 35, and a pH is 7.49. Electrolyte profile is essentially normal. AST 66 LC 109 LDH 1092 troponin normal and C-reactive protein 16.5. Lim virus testing here was negative as mentioned above. Chest x-ray shows bilateral infiltrates, and computed tomography scan showed groundglass opacities as well as small bilateral pulmonary emboli. Progress note dated 10/17/2020. 50-year-old male seen yesterday in consultation. He was seen on October 15 in the ER. It shortness of breath, which had worsened over the last few days. The patient hasn't been feeling well for weeks. The patient's father is currently in the hospital with coronavirus pneumonia. His clinical picture, and CAT scan are consistent with that diagnosis. Currently, the patient is on AIRVO, at 60 L/m and 90%. He is feeling a bit better today. He is also getting saline at 20 mL an hour. Laboratory data today includes a PTT of 46.7, and a creatinine of 0.65. No new chest x-ray as noted. Progress note dated 10/18/2020. 50-year-old male, seen a couple days ago in consultation, in the emergency department. The patient complained of shortness of breath, which had worsened over the last few days. The patient hasn't been feeling well for "weeks". The patient's father is currently in the hospital with coronavirus pneumonia. The patient's clinical picture, and CAT scan are also consistent with that diagn osis. Currently, the patient remains on AIRVO, at 60 L/m, and FiO2 of 90%. His saturations are 97%. Is getting saline at 20 mL an hour. Patient states that he does feel better. Laboratory data today includes sodium 134, potassium 4.4, chlorides 105, CO2 23, anion gap 6, BUN and creatinine were 19 and 0.61. Progress note dated 10/19/2020. Currently, the patient feels like he is doing better. He's feeling better. He remains on AIRVO, at 45 L/m, and an FiO2 of 50%. His chest x-ray looks i mproved. He is getting saline at 20 mL an hour. The patient clinically looks better. The only new labs today is a creatinine 0.72. Chest x-ray today shows scattered airspace disease, which is significantly improved. Progress note dated 10/20/2020. Currently, the patient feels like he is improved. He remains on AIRVO, at 45 L/m, with an FiO2 of 50%. The patient's getting saline at 20 mL an hour. He remains in room 362. He denies any chest pain or chest discomfort. There is no fever or chills. He's not coughing up any phlegm. His cough is typically dry. He denies any nausea, vomiting, diarrhea or abdominal pain. Currently, white count 11.6, he will 14.6, hematocrit 43.9, platelet count is 364,000. Sodium 131, potassium 4.0, chloride 99, CO2 25, anion gap 7, BUN 19, and creatinine 0.7. Microbiologic studies are negative. Chest x-ray from October 19, shows scattered airspace disease, which is improved. Objective - Vital Signs Vital signs: Vital Signs Temp 97.9 F 10/20/20 08:00 Pulse 86 10/20/20 08:00 Resp 28 H 10/20/20 08:00 BP 137/90 10/20/20 08:00 Pulse Ox 97 10/20/20 08:00 Intake & Output 10/19/20 10/20/20 10/20/20 18:59 06:59 18:59 Intake Total 4350 10 250 Output Total 900 1650 Balance 3450 -1640 250 Weight 101 kg Intake: IV 20 10 Invasive Line 1 20 10 Intake, IV Titration 240 Amount Sodium Chloride 0.9% 1, 240 000 ml @ 20 mls/hr IV . Q24H [facility] Rx#:[id number] Oral 4090 250 Output: Urine 900 1650 Other: Voiding Method Urinal Urinal # Voids 2 # Bowel Movements 3 1 1 - Exam No acute distress, oriented 3. Currently on AIRVO. Saturations 97%. No use of accessory muscles or conversational dyspnea. HEENT examination is grossly unremarkable. Neck supple. Full range of motion. No adenopathy thyromegaly or neck vein distention. Cardiovascular examination reveals regular rhythm rate. S1-S2 normal. No S3 or S4. No discernible murmur noted. Heart sounds are distant. Heart rate 86 bpm. Lungs reveal diffuse bilateral rhonchi. Breath sounds are diminished. No wheezes. A few scattered crackles. The patient coughs on deep inspiration. Breath sounds are equal bilaterally. Abdomen soft bowel sounds are heard. No masses or tenderness. Extremities are intact. No cyanosis clubbing or edema. Skin is without rash or lesion. Neurologic examination is brief but nonfocal. - Labs CBC & Chem 7: 10/20/20 10:17 10/20/20 10:17 Labs: Abnormal Lab Results - Last 24 Hours (Table) 10/20/20 10/20/20 Range/Units 10:17 10:17 WBC 11.6 H (3.8-10.6) k/uL Sodium 131 L (137-145) mmol/L Glucose 259 H (74-99) mg/dL Microbiology - Last 24 Hours (Table) 10/15/20 19:32 Blood Culture - Preliminary Blood No Growth after 96 hours 10/16/20 23:50 Gram Stain - Final Sputum Sputum Culture - Final Assessment and Plan Assessment: Acute hypoxemic respiratory failure, multifactorial, in part related to likely COVID 19 pneumonitis/pneumonia, as well as small bilateral pulmonary emboli. History of hypertension. Elevated inflammatory marker secondary to coronavirus infection. Hypercoagulable state secondary to coronavirus infection. Plan: Plan dated 10/16/2020. The patient can be admitted to the third floor. The patient is currently on IV heparin. The patient continues either BiPAP or AIRVO. The patient should get vitamin C, vitamin D3, and zinc, as well as Decadron. Additional recommendations and suggestions are forthcoming. Prognosis is guarded. The patient could be converted to a factor X a inhibitor later today or tomorrow. The pulmonary emboli a rather small and likely not the major etiology of the patient's hypoxemia. Additional recommendations and suggestions are forthcoming. Plan dated 10/17/2020. Currently, the patient is on AIRVO, with settings of 60 L/m, and 90%. He is getting saline at 20 mL an hour. Clinically he looks stable and he states that he is feeling better. His medications are reviewed. He is on an albuterol inh aler, vitamin C, vitamin D3, zinc, Decadron, and a factor X a inhibitor, i.e. Eliquis. Additional recommendations and suggestions are forthcoming. We will continue to wean down the oxygen levels. The pulmonary emboli are rather small, and not likely to blame for the patient significant hypoxemic respiratory failure. Additional recommendations and suggestions are forthcoming. Prognosis is guarded. Plan dated 10/18/2020. Currently, the patient remains on AIRVO. It appears, that his saturations are excellent, and he can probably be weaned down in terms of his FiO2, and flow rate. The patient does feel better. His saturations are 98%. Medications are reviewed. IV heparin was discontinued in favor of Eliquis. The rest of the medications are appropriate including Decadron, vitamin C, vitamin D3, and zinc. Pro-calcitonin level is 0.20. The likelihood of bacterial infection in my opinion is very low. Antibiotics can probably be discontinued. We will continue to follow. Additional recommendations and suggestions are forthcoming Plan dated 10/19/2020. The patient remains on AIRVO. He is clinically improved, his saturations are better, and his chest x-ray looks improved. The patient feels much less short of breath today. He remains on appropriate medications we Decadron, vitamin C, vitamin D3, and zinc. The patient was transitioned to a factor X a inhibitor. Antibiotics in my opinion he can be discontinued. Additional recommendations and suggestions are forthcoming. Prognosis is guarded. Plan dated 10/20/2020. The patient remains on AIRVO, but his oxygen requirements have declined. The patient was placed on Eliquis. His other medications are appropriate and include vitamin C, vitamin D3, and zinc. In addition, the patient's on Decadron 6 mg a day. We will continue to follow this patient. Additional recommendations and suggestions are forthcoming. Prognosis is guarded. Time with Patient: Less than 30
--- NOTE | 2020-10-20 15:35 | PN ---
PROGRESS NOTE DATE OF SERVICE: 10/20/2020 REASON FOR FOLLOWUP: Pneumonia. INTERVAL HISTORY: The patient is currently afebrile. Patient is breathing comfortably, less shortness of breath on exertion. No chest pain. No worsening cough or sputum production. No abdominal pain or diarrhea. PHYSICAL EXAMINATION: Blood pressure 133/74, pulse of 73, temperature 97.9, he is 98% on 25% FiO2. GENERAL DESCRIPTION: A middle-aged male lying in bed in no distress. RESPIRATORY SYSTEM: Unlabored breathing, clear to auscultation anteriorly. HEART: S1, S2. Regular rate and rhythm. ABDOMEN: Soft, no tenderness. EXTREMITIES: No edema of the feet. LABS: Hemoglobin is 14.1, white count 11.6, creatinine 0.70. IMPRESSION/PLAN: Patient with acute respiratory failure which is multifactorial. Did have bilateral pulmonary embolism, plus or minus component of pneumonia and possible COVID with a negative PCI. The patient has clinically responded to current treatment with dexamethasone, Eliquis, zinc and ascorbic acid, to continue. Monitor clinical course closely. Continue supportive care. MMODL / IJN: [id number] /
--- NOTE | 2020-10-20 18:14 | P.PN ---
Subjective Progress Note Date: 10/20/20 Principal diagnosis: Acute hypoxic respiratory failure Atypical pneumonia Suspicious for COVID-19 infection Bilateral pulmonary embolus 50-year-old that male admitted for acute hypoxic respiratory failure which was initially believed to be secondary to Covid 19 pneumonia and patient also has a some small bilateral pulmonary emboli. Patient is presently on Airvo. Patient is also on IV heparin. Will check for insurance authorization for Eliquis. Patient had 2 negative covid test. Urinary Legionella antigen and mycoplasma IgM antibody are pending at this time patient will be started on levofloxacin empirically for now. 10/19/2020. Patient is seen and evaluated in room at bedside. Currently, the patient feels like he is doing better; remains on AIRVO, at 45 L/m, and an FiO2 of 50%. His chest x-ray looks improved. He is getting saline at 20 mL an hour. The patient clinically looks better. The only new labs today is a creatinine 0.72. Chest x-ray today shows scattered airspace disease, which is significantly improved. Pulmonary is following and recommending to continue with AIRVO; patient remains on Decadron, vitamin C and vitamin D along with sitting sulfate; patient is recommended oral anticoagulation for hypercoagulable state secondary to Covid 19 infection 10/20/2020. patient is seen and evaluated in room at bedside; the patient feels like he is improved. He remains on AIRVO, at 45 L/m, with an FiO2 of 50%. The patient's getting saline at 20 mL an hour. He remains in room 362. He denies any chest pain or chest discomfort. There is no fever or chills. He's not coughing up any phlegm. His cough is typically dry. He denies any nausea, vomiting, diarrhea or abdominal pain. Currently, white count 11.6, he will 14.6, hematocrit 43.9, platelet count is 364,000. Sodium 131, potassium 4.0, chloride 99, CO2 25, anion gap 7, BUN 19, and creatinine 0.7. Microbiologic studies are negative. Chest x-ray from October 19, shows scattered airspace disease, which is improved; remains on AIRVO, but his oxygen requirements have declined. The patient was placed on Eliquis. His other medications are appropriate and include vitamin C, vitamin D3, and zinc. In addition, the patient's on Decadron 6 mg a day. Objective - Vital Signs Vital signs: Vital Signs Temp 97.9 F 10/20/20 08:00 Pulse 86 10/20/20 08:00 Resp 28 H 10/20/20 08:00 BP 137/90 10/20/20 08:00 Pulse Ox 97 10/20/20 08:00 Intake & Output 10/19/20 10/20/20 10/20/20 18:59 06:59 18:59 Intake Total 4350 10 250 Output Total 900 1650 Balance 3450 -1640 250 Weight 101 kg Intake: IV 20 10 Invasive Line 1 20 10 Intake, IV Titration 240 Amount Sodium Chloride 0.9% 1, 240 000 ml @ 20 mls/hr IV . Q24H [facility] Rx#:[id number] Oral 4090 250 Output: Urine 900 1650 Other: Voiding Method Urinal Urinal # Voids 2 # Bowel Movements 3 1 - Exam GENERAL: The patient is alert and oriented x3, not in any acute distress. Well developed, well nourished. HEENT: Pupils are round and equally reacting to light. EOMI. No scleral icterus. No conjunctival pallor. Normocephalic, atraumatic. No pharyngeal erythema. No thyromegaly. CARDIOVASCULAR: S1 and S2 present. No murmurs, rubs, or gallops. PULMONARY: has diffuse bilateral rhonchi. ABDOMEN: Soft, nontender, nondistended, normoactive bowel sounds. No palpable organomegaly. MUSCULOSKELETAL: No joint swelling or deformity. EXTREMITIES: No cyanosis, clubbing, or pedal edema. NEUROLOGICAL: Gross neurological examination did not reveal any focal deficits. SKIN: No rashes. - Labs CBC & Chem 7: 10/20/20 10:17 10/20/20 10:17 Labs: Microbiology - Last 24 Hours (Table) 10/15/20 19:32 Blood Culture - Preliminary Blood No Growth after 96 hours 10/16/20 23:50 Gram Stain - Final Sputum Sputum Culture - Final Assessment and Plan Assessment: -Acute hypoxic respiratory failure: His COVID-19 was negative. Pretty of atypical pneumonia secondary to Legionella or Mycoplasma although urinary Legionella antigen is negative and mycoplasma IgM antibody is negative . Patient remains on levofloxacin.. There may be some contribution from bilateral pulmonary embolism for his shortness of breath on Eliquis . Son same amount of oxygen - although clinically feeling better .Hypotension -Depression
[2020-10-20] MEDS: SODIUM CHLORIDE 0.9% 1,000 ML IV SCH (18:27)
[2020-10-20] MEDS: LORazepam 2 MG/ML INJ IV PRN (22:07)
[2020-10-21] MEDS: ALBUTEROL HFA INHALER INHALATION SCH ×3 (08:35→20:42)
[2020-10-21] MEDS: ZINC SULFATE 220 MG CAP PO SCH (09:48)
[2020-10-21] MEDS: APIXABAN 5 MG TAB PO SCH ×2 (09:48→20:20)
[2020-10-21] MEDS: MULTIVITAMINS, THERA 1 EACH TAB PO SCH (09:49)
[2020-10-21] MEDS: ESCITALOPRAM 10 MG TAB PO SCH (09:49)
[2020-10-21] MEDS: CHOLECALCIFEROL 25 MCG (1000 IU) TABLET PO SCH (09:49)
[2020-10-21] MEDS: dexAMETHasone 2 MG TAB PO SCH (09:49)
[2020-10-21] MEDS: ASCORBIC ACID 500 MG TAB PO SCH (09:49)
[2020-10-21] MEDS: lisinopriL 20 MG TAB PO SCH (09:50)
[2020-10-21 11:35] LABS: HCT 47.9 % (39.0-53.0); HGB 15.8 gm/dL (13.0-17.5); MCH 30.3 pg (25.0-35.0); MCHC 32.9 g/dL (31.0-37.0); MCV 92.1 fL (80.0-100.0); Mean Platelet Volume 8.4; Platelet Count 207 k/uL (150-450); RDW 13.3 % (11.5-15.5); WBC 10.9 k/uL (3.8-10.6)
[2020-10-21 11:40] LABS: African American GFR (CKD) >90 (>60 ml/min/1.73 sqM); Anion Gap 8 mmol/L; Blood Urea Nitrogen 20 mg/dL (9-20); Calcium 8.5 mg/dL (8.4-10.2); Carbon Dioxide 21 mmol/L (22-30); Chloride 100 mmol/L (98-107); Glucose 242 mg/dL (74-99); Non-African American GFR(CKD) >90 (>60 ml/min/1.73 sqM); Sodium 129 mmol/L (137-145)
[2020-10-21 11:42] LABS: Potassium 4.5 mmol/L (3.5-5.1)
--- NOTE | 2020-10-21 16:28 | P.PN ---
Subjective Progress Note Date: 10/21/20 Principal diagnosis: Respiratory failure. Pulmonary consult dated 10/16/2020. 50-year-old male, that was brought into the emergency room by EMS. He was seen there on October 15 by one of the ER physician. His complaints included shortness of breath, which could worsen over the last number of days. The patient hasn't been feeling well for weeks. The patient apparently tested recently at one of the urgent care centers and was negative for coronavirus. Here in our emergency room, he was also tested and was found to be negative. Currently, his father is in the hospital with coronavirus pneumonia. The patient had a computed tomography scan of the chest which not only showed small bilateral pulmonary emboli, but show typical bilateral groundglass opacities consistent with COVID 19 pneumonia. The patient complains of shortness of breath, cough, chest congestion, fever, chills, and muscle aches. Currently, he's on BiPAP with settings of IPAP 14, EPAP 7, and 100%. He is also getting IV heparin. In addition, there is an AIRVO device in his room set up at 60 L/m and 90% FiO2. His medical history is positive for hypertension. White count 7.4, hemoglobin 14.5, hematocrit 43.2, platelet count 316,000. PTT is 52.4. D-dimer is 15.36. Blood gases show a PaO2 of 54, PaCO2 35, and a pH is 7.49. Electrolyte profile is essentially normal. AST 66 LC 109 LDH 1092 troponin normal and C-reactive protein 16.5. Lim virus testing here was negative as mentioned above. Chest x-ray shows bilateral infiltrates, and computed tomography scan showed groundglass opacities as well as small bilateral pulmonary emboli. Progress note dated 10/17/2020. 50-year-old male seen yesterday in consultation. He was seen on October 15 in the ER. It shortness of breath, which had worsened over the last few days. The patient hasn't been feeling well for weeks. The patient's father is currently in the hospital with coronavirus pneumonia. His clinical picture, and CAT scan are consistent with that diagnosis. Currently, the patient is on AIRVO, at 60 L/m and 90%. He is feeling a bit better today. He is also getting saline at 20 mL an hour. Laboratory data today includes a PTT of 46.7, and a creatinine of 0.65. No new chest x-ray as noted. Progress note dated 10/18/2020. 50-year-old male, seen a couple days ago in consultation, in the emergency department. The patient complained of shortness of breath, which had worsened over the last few days. The patient hasn't been feeling well for "weeks". The patient's father is currently in the hospital with coronavirus pneumonia. The patient's clinical picture, and CAT scan are also consistent with that diagn osis. Currently, the patient remains on AIRVO, at 60 L/m, and FiO2 of 90%. His saturations are 97%. Is getting saline at 20 mL an hour. Patient states that he does feel better. Laboratory data today includes sodium 134, potassium 4.4, chlorides 105, CO2 23, anion gap 6, BUN and creatinine were 19 and 0.61. Progress note dated 10/19/2020. Currently, the patient feels like he is doing better. He's feeling better. He remains on AIRVO, at 45 L/m, and an FiO2 of 50%. His chest x-ray looks i mproved. He is getting saline at 20 mL an hour. The patient clinically looks better. The only new labs today is a creatinine 0.72. Chest x-ray today shows scattered airspace disease, which is significantly improved. Progress note dated 10/20/2020. Currently, the patient feels like he is improved. He remains on AIRVO, at 45 L/m, with an FiO2 of 50%. The patient's getting saline at 20 mL an hour. He remains in room 362. He denies any chest pain or chest discomfort. There is no fever or chills. He's not coughing up any phlegm. His cough is typically dry. He denies any nausea, vomiting, diarrhea or abdominal pain. Currently, white count 11.6, he will 14.6, hematocrit 43.9, platelet count is 364,000. Sodium 131, potassium 4.0, chloride 99, CO2 25, anion gap 7, BUN 19, and creatinine 0.7. Microbiologic studies are negative. Chest x-ray from October 19, shows scattered airspace disease, which is improved. Progress note dated 10/21/2020. Currently, the patient's doing much better. The last number of days, he has been on AIRVO. Today, he is on 5 L nasal cannula. He's feeling much better. He's been able to get out of bed and go to the bathroom and washout. He seems to have turned the corner. Laboratory data includes a white count 10.9, hemoglobin 15.8, hematocrit 47.9, platelet count 207,000. Sodium 129, potassium 4.5, chlorides 100, CO2 21, anion gap 8, BUN 20, creatinine 0.60. Objective - Vital Signs Vital signs: Vital Signs Temp 99.6 F 10/21/20 12:00 Pulse 100 10/21/20 12:00 Resp 26 H 10/21/20 12:00 BP 113/74 10/21/20 12:00 Pulse Ox 96 10/21/20 12:00 Intake & Output 10/20/20 10/21/20 10/21/20 18:59 06:59 18:59 Intake Total 1690 358 Output Total 1000 Balance 1690 -1000 358 Weight 102.5 kg Intake: Intake, IV Titration 200 Amount Sodium Chloride 0.9% 1, 200 000 ml @ 20 mls/hr IV . Q24H [facility] Rx#:[id number] Oral 1490 358 Output: Urine 1000 Other: Voiding Method Urinal # Voids 1 3 # Bowel Movements 1 2 - Exam No acute distress, oriented 3. The patient has been weaned down to 5 L nasal cannula. Saturations are 96%. HEENT examination is grossly unremarkable. Neck supple. Full range of motion. No adenopathy thyromegaly or neck vein distention. Cardiovascular examination reveals regular rhythm rate. S1-S2 normal. No S3 or S4. No discernible murmur noted. Heart sounds are distant. Heart rate 91 bpm. Lungs reveal diffuse bilateral rhonchi. Breath sounds are diminished. No wheezes. A few scattered crackles. Breath sounds are equal bilaterally. Abdomen soft bowel sounds are heard. No masses or tenderness. Extremities are intact. No cyanosis clubbing or edema. Skin is without rash or lesion. Neurologic examination is brief but nonfocal. - Labs CBC & Chem 7: 10/21/20 10:19 10/21/20 10:19 Labs: Abnormal Lab Results - Last 24 Hours (Table) 10/21/20 10/21/20 Range/Units 10:19 10:19 WBC 10.9 H (3.8-10.6) k/uL Sodium 129 L (137-145) mmol/L Carbon Dioxide 21 L (22-30) mmol/L Creatinine 0.60 L (0.66-1.25) mg/dL Glucose 242 H (74-99) mg/dL Microbiology - Last 24 Hours (Table) 10/15/20 19:32 Blood Culture - Preliminary Blood No Growth after 120 hours Assessment and Plan Assessment: Acute hypoxemic respiratory failure, multifactorial, in part related to likely COVID 19 pneumonitis/pneumonia, as well as small bilateral pulmonary emboli. History of hypertension. Elevated inflammatory marker secondary to coronavirus infection. Hypercoagulable state secondary to coronavirus infection. Plan: Plan dated 10/16/2020. The patient can be admitted to the third floor. The patient is currently on IV heparin. The patient continues either BiPAP or AIRVO. The patient should get vitamin C, vitamin D3, and zinc, as well as Decadron. Additional recommendations and suggestions are forthcoming. Prognosis is guarded. The patient could be converted to a factor X a inhibitor later today or tomorrow. The pulmonary emboli a rather small and likely not the major etiology of the patient's hypoxemia. Additional recommendations and suggestions are forthcoming. Plan dated 10/17/2020. Currently, the patient is on AIRVO, with settings of 60 L/m, and 90%. He is getting saline at 20 mL an hour. Clinically he looks stable and he states that he is feeling better. His medications are reviewed. He is on an albuterol inhaler, vitamin C, vitamin D3, zinc, Decadron, and a factor X a inhibitor, i.e. Eliquis. Additional recommendations and suggestions are forthcoming. We will continue to wean down the oxygen levels. The pulmonary emboli are rather small, and not likely to blame for the patient significant hypoxemic respiratory failure. Additional recommendations and suggestions are forthcoming. Prognosis is guarded. Plan dated 10/18/2020. Currently, the patient remains on AIRVO. It appears, that his saturations are excellent, and he can probably be weaned down in terms of his FiO2, and flow rate. The patient does feel better. His saturations are 98%. Medications are reviewed. IV heparin was discontinued in favor of Eliquis. The rest of the medications are appropriate including Decadron, vitamin C, vitamin D3, and zinc. Pro-calcitonin level is 0.20. The likelihood of bacterial infection in my opinion is very low. Antibiotics can probably be discontinued. We will continue to follow. Additional recommendations and suggestions are forthcoming Plan dated 10/19/2020. The patient remains on AIRVO. He is clinically improved, his saturations are better, and his chest x-ray looks improved. The patient feels much less short of breath today. He remains on appropriate medications we Decadron, vitamin C, vitamin D3, and zinc. The patient was transitioned to a factor X a inhibitor. Antibiotics in my opinion he can be discontinued. Additional recommendations and suggestions are forthcoming. Prognosis is guarded. Plan dated 10/20/2020. The patient remains on AIRVO, but his oxygen requirements have declined. The patient was placed on Eliquis. His other medications are appropriate and i nclude vitamin C, vitamin D3, and zinc. In addition, the patient's on Decadron 6 mg a day. We will continue to follow this patient. Additional recommendations and suggestions are forthcoming. Prognosis is guarded. Plan dated 10/21/2020. The patient appears to be doing much better. The patient has been weaned down to 5 L nasal cannula. He was able get out of the chair today walked to the [facility], and get washed up. The patient remains on Eliquis. In addition, he is on vitamin C, vitamin D3, and zinc. Also, the patient's on Decadron 6 mg a day. He's feeling much improved. We will continue to follow. Additional recommendations and suggestions are forthcoming. Time with Patient: Less than 30
[2020-10-21] MEDS: SODIUM CHLORIDE 0.9% 1,000 ML IV SCH (18:41)
--- NOTE | 2020-10-21 20:01 | P.PN ---
Subjective Progress Note Date: 10/21/20 Principal diagnosis: Acute hypoxic respiratory failure Atypical pneumonia Suspicious for COVID-19 infection Bilateral pulmonary embolus 50-year-old that male admitted for acute hypoxic respiratory failure which was initially believed to be secondary to Covid 19 pneumonia and patient also has a some small bilateral pulmonary emboli. Patient is presently on Airvo. Patient is also on IV heparin. Will check for insurance authorization for Eliquis. Patient had 2 negative covid test. Urinary Legionella antigen and mycoplasma IgM antibody are pending at this time patient will be started on levofloxacin empirically for now. 10/19/2020. Patient is seen and evaluated in room at bedside. Currently, the patient feels like he is doing better; remains on AIRVO, at 45 L/m, and an FiO2 of 50%. His chest x-ray looks improved. He is getting saline at 20 mL an hour. The patient clinically looks better. The only new labs today is a creatinine 0.72. Chest x-ray today shows scattered airspace disease, which is significantly improved. Pulmonary is following and recommending to continue with AIRVO; patient remains on Decadron, vitamin C and vitamin D along with sitting sulfate; patient is recommended oral anticoagulation for hypercoagulable state secondary to Covid 19 infection 10/20/2020. patient is seen and evaluated in room at bedside; the patient feels like he is improved. He remains on AIRVO, at 45 L/m, with an FiO2 of 50%. The patient's getting saline at 20 mL an hour. He remains in room 362. He denies any chest pain or chest discomfort. There is no fever or chills. He's not coughing up any phlegm. His cough is typically dry. He denies any nausea, vomiting, diarrhea or abdominal pain. Currently, white count 11.6, he will 14.6, hematocrit 43.9, platelet count is 364,000. Sodium 131, potassium 4.0, chloride 99, CO2 25, anion gap 7, BUN 19, and creatinine 0.7. Microbiologic studies are negative. Chest x-ray from October 19, shows scattered airspace disease, which is improved; remains on AIRVO, but his oxygen requirements have declined. The patient was placed on Eliquis. His other medications are appropriate and include vitamin C, vitamin D3, and zinc. In addition, the patient's on Decadron 6 mg a day. 10/21/2020 Patient is seen and evaluated in room at bedside, the patient reports doing much better on AIRVO. Today, he is on 5 L nasal cannula. He's feeling much better. He's been able to get out of bed and go to the bathroom and washout. He seems to have turned the corner. Laboratory data includes a white count 10.9, hemoglobin 15.8, hematocrit 47.9, platelet count 207,000. Sodium 129, potassium 4.5, chlorides 100, CO2 21, anion gap 8, BUN 20, creatinine 0.60. The patient remains on Eliquis, vitamin C, vitamin D3, zinc and Decadron 6 mg a day. Objective - Vital Signs Vital signs: Vital Signs Temp 97.6 F 10/20/20 20:00 Pulse 80 10/21/20 04:00 Resp 20 10/21/20 04:00 BP 168/92 10/21/20 04:00 Pulse Ox 96 10/21/20 04:00 Intake & Output 10/20/20 10/21/20 10/21/20 18:59 06:59 18:59 Intake Total 1690 118 Output Total 1000 Balance 1690 -1000 118 Weight 102.5 kg Intake: Intake, IV Titration 200 Amount Sodium Chloride 0.9% 1, 200 000 ml @ 20 mls/hr IV . Q24H [facility] Rx#:[id number] Oral 1490 118 Output: Urine 1000 Other: Voiding Method Urinal # Voids 1 # Bowel Movements 1 2 - Exam GENERAL: The patient is alert and oriented x3, not in any acute distress. Well developed, well nourished. HEENT: Pupils are round and equally reacting to light. EOMI. No scleral icterus. No conjunctival pallor. Normocephalic, atraumatic. No pharyngeal erythema. No thyromegaly. CARDIOVASCULAR: S1 and S2 present. No murmurs, rubs, or gallops. PULMONARY: has diffuse bilateral rhonchi. ABDOMEN: Soft, nontender, nondistended, normoactive bowel sounds. No palpable organomegaly. MUSCULOSKELETAL: No joint swelling or deformity. EXTREMITIES: No cyanosis, clubbing, or pedal edema. NEUROLOGICAL: Gross neurological examination did not reveal any focal deficits. SKIN: No rashes. - Labs CBC & Chem 7: 10/21/20 10:19 10/21/20 10:19 Labs: Abnormal Lab Results - Last 24 Hours (Table) 10/20/20 10/20/20 Range/Units 10:17 10:17 WBC 11.6 H (3.8-10.6) k/uL Sodium 131 L (137-145) mmol/L Glucose 259 H (74-99) mg/dL Microbiology - Last 24 Hours (Table) 10/15/20 19:32 Blood Culture - Preliminary Blood No Growth after 120 hours Assessment and Plan Assessment: -Acute hypoxic respiratory failure: His COVID-19 was negative. Pretty of atypical pneumonia secondary to Legionella or Mycoplasma although urinary Legionella antigen is negative and mycoplasma IgM antibody is negative . Patient remains on levofloxacin.. There may be some contribution from bilateral pulmonary embolism for his shortness of breath on Eliquis . Son same amount of oxygen - although clinically feeling better .Hypotension -Depression
[2020-10-21 20:23] VITALS: RESP 18
[2020-10-21] MEDS: LORazepam 2 MG/ML INJ IV PRN (22:10)
--- NOTE | 2020-10-22 04:49 | PN ---
PROGRESS NOTE DATE OF SERVICE: 10/21/2020. REASON FOR FOLLOWUP: Pneumonia. INTERVAL HISTORY: The patient is currently afebrile. The patient has been breathing comfortably. The patient is down to 4 L nasal cannula. The patient denies having any chest pain or cough. No abdominal pain or diarrhea. PHYSICAL EXAMINATION: Blood pressure 100/70 with a pulse of 103. Temperature 98.6. He is 96% on 4 L nasal cannula. General description is a middle-aged male up in the chair in no distress. Respiratory system: Unlabored breathing, decreased intensity in breath sounds in the base, with no wheeze. Heart S1, S2. Regular rate and rhythm. Abdomen soft, no tenderness. LABS: Hemoglobin is 15.8, white count 10.9, BUN of 20, creatinine 0.60. DIAGNOSTIC IMPRESSION AND PLAN: Patient admitted to the hospital with acute respiratory distress and hypoxemia. Did have evidence of bilateral pulmonary embolism and question of interstitial pneumonia possible Covid. The patient seemed to have shown overall clinical improvement with current treatment of Eliquis, dexamethasone, zinc and ascorbic acid to continue and monitor clinical course closely. MMODL / IJN: [id number] /
[2020-10-22] MEDS ORDERED: SODIUM CHLORIDE 0.9% 1,000 ML IV ONE (07:42)
--- NOTE | 2020-10-22 08:18 | P.DS ---
Providers Date of admission: 10/15/20 16:31 Attending physician: Hardy Ernst Consults: 10/15/20 16:32 Consult Physician Routine Consulting Provider: Micky Meyers Consult Reason/Comments: covid, PE, hypoxia Do you want consulting provider notified?: Yes 10/15/20 19:10 Consult Physician Routine Consulting Provider: Paul hCavez Consult Reason/Comments: covid? Do you want consulting provider notified?: Yes 10/16/20 11:44 Consult Physician Routine Consulting Provider: Paul Chavez Consult Reason/Comments: Cellulitis of left leg Do you want consulting provider notified?: Yes Primary care physician: [facility] Course: Principal diagnosis: Acute hypoxic respiratory failure Atypical pneumonia Suspicious for COVID-19 infection Bilateral pulmonary embolus 50-year-old that male admitted for acute hypoxic respiratory failure which was initially believed to be secondary to Covid 19 pneumonia and patient also has a some small bilateral pulmonary emboli. Patient is presently on Airvo. Patient is also on IV heparin. Will check for insurance authorization for X BODY. Patient had 2 negative covid test. Urinary Legionella antigen and mycoplasma IgM antibody are pending at this time patient will be started on levofloxacin empirically for now. 10/19/2020. Patient is seen and evaluated in room at bedside. Currently, the patient feels like he is doing better; remains on AIRVO, at 45 L/m, and an FiO2 of 50%. His chest x-ray looks improved. He is getting saline at 20 mL an hour. The patient clinically looks better. The only new labs today is a creatinine 0.72. Chest x-ray today shows scattered airspace disease, which is significantly improved. Pulmonary is following and recommending to continue with AIRVO; patient remains on Decadron, vitamin C and vitamin D along with sitting sulfate; patient is recommended oral anticoagulation for hypercoagulable state secondary to Covid 19 infection 10/20/2020. patient is seen and evaluated in room at bedside; the patient feels like he is improved. He remains on AIRVO, at 45 L/m, with an FiO2 of 50%. The patient's getting saline at 20 mL an hour. He remains in room 362. He denies any chest pain or chest discomfort. There is no fever or chills. He's not coughing up any phlegm. His cough is typically dry. He denies any nausea, vomiting, diarrhea or abdominal pain. Currently, white count 11.6, he will 14.6, hematocrit 43.9, platelet count is 364,000. Sodium 131, potassium 4.0, chloride 99, CO2 25, anion gap 7, BUN 19, and creatinine 0.7. Microbiologic studies are negative. Chest x-ray from October 19, shows scattered airspace disease, which is improved; remains on AIRVO, but his oxygen requirements have declined. The patient was placed on Eliquis. His other medications are appropriate and include vitamin C, vitamin D3, and zinc. In addition, the patient's on Decadron 10/22/2020 Patient is clinically doing well and is presently on 4 L of oxygen will be discharged today. Patient will require oxygen which will be tapered down as an outpatient. Etiology of hypoxic respiratory failure is still not clear partly because of pulmonary embolism, patient is negative for Covid but was treated for Covid and was also treated for atypical pneumonia all the workup for atypical pneumonia was also negative. Patient completed antibiotic course for atypical pneumonia with levofloxacin and infectious disease not recommending any more antibiotics at this time patient will be discharged on 2 more days of Decadron completing 10 day of therapy. Patient is presently hyponatremic or believe this is secondary to hypovolemia patient will be given a liter bolus of IV fluid and we'll recheck serum sodium before discharge and if it tends to improve patient will be discharged on repeat basic metabolic profile will be obtained in 2 days before cc primary care physician Dr. Medina. GENERAL: The patient is alert and oriented x3, not in any acute distress. Well developed, well nourished. HEENT: Pupils are round and equally reacting to light. EOMI. No scleral icterus. No conjunctival pallor. Normocephalic, atraumatic. No pharyngeal erythema. No thyromegaly. CARDIOVASCULAR: S1 and S2 present. No murmurs, rubs, or gallops. PULMONARY: Improved bilateral rhonchi ABDOMEN: Soft, nontender, nondistended, normoactive bowel sounds. No palpable organomegaly. MUSCULOSKELETAL: No joint swelling or deformity. EXTREMITIES: No cyanosis, clubbing, or pedal edema. NEUROLOGICAL: Gross neurological examination did not reveal any focal deficits. SKIN: No rashes. Assessment and Plan Assessment: -Acute hypoxic respiratory failure: His COVID-19 was negative. Pretty of atypical pneumonia secondary to Legionella or Mycoplasma although urinary Legionella antigen is negative and mycoplasma IgM antibody is negative . There may be some contribution from bilateral pulmonary embolism for his shortness of breath on Eliquis . -Hypovolemic hyponatremia .Hypotension -Depression Patient Condition at Discharge: Critical Plan - Discharge Summary New Discharge Prescriptions: New Apixaban [Eliquis Starter Pack (for VTE)] 0 mg PO DIRECTED 30 Days #1 pack Zinc Sulfate [Orazinc] 220 mg PO DAILY #20 cap Ascorbic Acid [Vitamin C] 500 mg PO DAILY #20 tab Cholecalciferol [Vitamin D3 (25 Mcg = 1000 Iu)] 25 mcg PO DAILY #20 tablet Dexamethasone [Decadron] 6 mg PO DAILY #3 tablet Continue ALPRAZolam [Xanax] 0.125 - 0.25 mg PO Q6H PRN PRN Reason: Anxiety Escitalopram [Lexapro] 10 mg PO DAILY Benzonatate [Tessalon Perles] 100 mg PO TID PRN PRN Reason: Cough Multivitamin [Multivitamins Adult Gummies] 1 tab PO DAILY Multivit-Min/FA/Lycopen/Lutein [Centrum Silver Men Tablet] 1 tab PO DAILY Albuterol Sulfate [Proair Respiclick] 1 puff PO RT-Q4H PRN PRN Reason: Shortness Of Breath Discontinued levoFLOXacin 750 mg PO DAILY No Action Cetirizine HCl [Zyrtec] 10 mg PO DAILY lisinopriL [Zestril] 20 mg PO DAILY Discharge Medication List Cetirizine HCl [Zyrtec] 10 mg PO DAILY 02/22/19 [History] lisinopriL [Zestril] 20 mg PO DAILY 02/22/19 [History] ALPRAZolam [Xanax] 0.125 - 0.25 mg PO Q6H PRN 10/15/20 [History] Albuterol Sulfate [Proair Respiclick] 1 puff PO RT-Q4H PRN 10/15/20 [History] Benzonatate [Tessalon Perles] 100 mg PO TID PRN 10/15/20 [History] Escitalopram [Lexapro] 10 mg PO DAILY 10/15/20 [History] Multivit-Min/FA/Lycopen/Lutein [Centrum Silver Men Tablet] 1 tab PO DAILY 10/15/20 [History] Multivitamin [Multivitamins Adult Gummies] 1 tab PO DAILY 10/15/20 [History] Apixaban [Eliquis Starter Pack (for VTE)] 0 mg PO DIRECTED 30 Days #1 pack 10/16/20 [Rx] Ascorbic Acid [Vitamin C] 500 mg PO DAILY #20 tab 10/22/20 [Rx] Cholecalciferol [Vitamin D3 (25 Mcg = 1000 Iu)] 25 mcg PO DAILY #20 tablet 10/22/20 [Rx] Dexamethasone [Decadron] 6 mg PO DAILY #3 tablet 10/22/20 [Rx] Zinc Sulfate [Orazinc] 220 mg PO DAILY #20 cap 10/22/20 [Rx] Follow up Appointment(s)/Referral(s): Nicolas Medina III, MD [Primary Care Provider] - 1-2 days Activity/Diet/Wound Care/Special Instructions: Sol covered with $40 copay
[2020-10-22] MEDS: APIXABAN 5 MG TAB PO SCH (08:24)
[2020-10-22] MEDS: ZINC SULFATE 220 MG CAP PO SCH (08:24)
[2020-10-22] MEDS: CHOLECALCIFEROL 25 MCG (1000 IU) TABLET PO SCH (08:24)
[2020-10-22] MEDS: lisinopriL 20 MG TAB PO SCH (08:24)
[2020-10-22] MEDS: ASCORBIC ACID 500 MG TAB PO SCH (08:24)
[2020-10-22] MEDS: ESCITALOPRAM 10 MG TAB PO SCH (08:24)
[2020-10-22] MEDS: MULTIVITAMINS, THERA 1 EACH TAB PO SCH (08:24)
[2020-10-22] MEDS: dexAMETHasone 2 MG TAB PO SCH (08:25)
[2020-10-22] MEDS: ALBUTEROL HFA INHALER INHALATION SCH ×2 (08:34→12:20)
[2020-10-22 10:52] VITALS: BMI 36.4
[2020-10-22 11:03] LABS: African American GFR (CKD) >90 (>60 ml/min/1.73 sqM); Anion Gap 8 mmol/L; Blood Urea Nitrogen 19 mg/dL (9-20); Calcium 9.1 mg/dL (8.4-10.2); Carbon Dioxide 25 mmol/L (22-30); Chloride 99 mmol/L (98-107); Glucose 303 mg/dL (74-99); Non-African American GFR(CKD) >90 (>60 ml/min/1.73 sqM); Potassium 4.4 mmol/L (3.5-5.1); Sodium 132 mmol/L (137-145)
[2020-10-22 11:58] VITALS: BP 127/79; TEMP 98.1
--- NOTE | 2020-10-22 12:19 | P.PN ---
Subjective Progress Note Date: 10/22/20 On today's evaluation, seeing this patient for a follow-up. 50-year-old male patient hospitalized for an acute COVID-19 related pneumonia and secondary hypoxic respiratory failure. The patient was originally seen on 10/15/2020 and he was released home to be readmitted to the hospital for worsening shortness of breath. He had extensive bilateral groundglass pulmonary changes and secondary hypoxic respiratory failure. He was on high flow oxygen at 60 L and he gradually improved and he was weaned off the high flow oxygen and yesterday was on 5 L and currently is down to 2 L of oxygen by nasal cannula maintain a saturation above 90%. He is feeling better. Less short of breath. No cough. No sputum production. No chest tightness. No wheezing. He is still on Decadron 6 mg on a daily basis orally. He is also on anticoagulation with Eliquis. Note that the patient's CT angiogram showed small bilateral pulmonary emboli and for that reason the patient was given therapeutic dose of Eliquis. No chest pain. Tolerating his diet. No nausea. No vomiting. No diarrhea. No abdominal pain. Objective - Vital Signs Vital signs: Vital Signs Temp 98.1 F 10/22/20 11:25 Pulse 89 10/22/20 11:25 Resp 18 10/22/20 11:25 BP 127/79 10/22/20 11:25 Pulse Ox 94 L 10/22/20 11:25 Intake & Output 10/21/20 10/22/20 10/22/20 18:59 06:59 18:59 Intake Total 508 180 Balance 508 180 Weight 102.5 kg Intake: Oral 508 180 Other: Voiding Method Urinal Urinal # Voids 3 2 # Bowel Movements 1 - Exam No acute distress, oriented 3. The patient has been weaned down to 2 L nasal cannula. Saturations are 96%. HEENT examination is grossly unremarkable. Neck supple. Full range of motion. No adenopathy thyromegaly or neck vein distention. Cardiovascular examination reveals regular rhythm rate. S1-S2 normal. No S3 or S4. No discernible murmur noted. Heart sounds are distant. Lungs reveal diffuse bilateral rhonchi. Breath sounds are diminished. No wheezes. A few scattered crackles. Breath sounds are equal bilaterally. Abdomen soft bowel sounds are heard. No masses or tenderness. Extremities are intact. No cyanosis clubbing or edema. Skin is without rash or lesion. Neurologic examination is brief but nonfocal. - Labs CBC & Chem 7: 10/21/20 10:19 10/22/20 10:15 Labs: Abnormal Lab Results - Last 24 Hours (Table) 10/22/20 Range/Units 10:15 Sodium 132 L (137-145) mmol/L Glucose 303 H (74-99) mg/dL Microbiology - Last 24 Hours (Table) 10/15/20 19:32 Blood Culture - Final Blood No Growth after 144 hours Assessment and Plan Plan: 1 Acute hypoxemic respiratory failure, multifactorial, in part related to likely COVID 19 pneumonitis/pneumonia, as well as small bilateral pulmonary emboli. 2 dyspnea secondary to above, improved 3 History of hypertension. 4 Elevated inflammatory marker secondary to coronavirus infection. Plan: Continue Decadron 6 mg by mouth daily Continue Eliquis Oxygen 2 L per minute nasal cannula Arrange home O2 for this patient at time of discharge Possible discharge either today or within next 24 hours Clinically much improved. We'll follow him up on outpatient basis
[2020-10-22 14:28] VITALS: PULSE 95
--- NOTE | 2020-10-23 05:39 | P.PN ---
Progress Note - Text Progress Note Date: 10/22/20 REASON FOR FOLLOWUP: Pneumonia. INTERVAL HISTORY: The patient is currently afebrile. The patient has been breathing comfortably. The patient oxygen requirement is down to 4 L nasal cannula. The patient denies having any chest pain or cough. No abdominal pain or diarrhea. PHYSICAL EXAMINATION: Blood pressure 105/70 with a pulse of 90. Temperature 98.6. He is 96% on 4 L nasal cannula. General description is a middle-aged male up in the chair in no distress. Respiratory system: Unlabored breathing, decreased intensity in breath sounds in the base, with no wheeze. Heart S1, S2. Regular rate and rhythm. Abdomen soft, no tenderness. LABS: reviewed. DIAGNOSTIC IMPRESSION AND PLAN: Patient admitted to the hospital with acute respiratory distress and hypoxemia. Did have evidence of bilateral pulmonary embolism and question of interstitial pneumonia possible Covid. The patient seemed to have shown overall clinical improvement with current treatment of Eliquis, dexamethasone, zinc and ascorbic acid, with possible discharge home on Oxygen , dexamethasone to finish 10 days and eliquis
== END 2020-10-22 16:24 | disposition home or self-care (01) | DRG 193 ==
LOC: EC 14:46 → 3SCARD 16:31
PROVIDERS: ADMIT Hospitalist; ATTEND Hospitalist
PROC: 5A09357 Assistance with Respiratory Ventilation, Less than 24 Consecutive Hours, Continuous Positive Airway Pressure (ICD-10-PCS; 2020-10-15)
PROC: 3E0333Z Introduction of Anti-inflammatory into Peripheral Vein, Percutaneous Approach (ICD-10-PCS; 2020-10-15)
PROC: 5A0945A Assistance with Respiratory Ventilation, 24-96 Consecutive Hours, High Flow/Velocity Cannula (ICD-10-PCS; principal; 2020-10-19)
DX: J18.9 Pneumonia, unspecified organism (principal); I26.99 Other pulmonary embolism without acute cor pulmonale; J96.01 Acute respiratory failure with hypoxia; J96.02 Acute respiratory failure with hypercapnia; E87.3 Alkalosis; Z68.1 Body mass index [BMI] 19.9 or less, adult; D68.69 Other thrombophilia; L03.116 Cellulitis of left lower limb; E87.1 Hypo-osmolality and hyponatremia; J93.9 Pneumothorax, unspecified; E87.6 Hypokalemia; E66.9 Obesity, unspecified; I10 Essential (primary) hypertension; F32.9 Major depressive disorder, single episode, unspecified; F41.9 Anxiety disorder, unspecified; Z88.1 Allergy status to other antibiotic agents; J30.2 Other seasonal allergic rhinitis; Z79.899 Other long term (current) drug therapy; Z87.01 Personal history of pneumonia (recurrent); Z82.49 Family history of ischemic heart disease and other diseases of the circulatory system; Z83.3 Family history of diabetes mellitus; I95.9 Hypotension, unspecified; Z20.822 Contact with and (suspected) exposure to COVID-19; E86.1 Hypovolemia; Z79.01 Long term (current) use of anticoagulants
CPT/HCPCS: 36415; 71045; 71275; 80048; 80053; 82565; 82728; 82805; 83605; 83615; 83735; 84145; 84484; 85025; 85027; 85379; 85610; 85730; 86140; 86738; 87040; 87070; 87086; 87205; 87449; 87636; 93005; 94640; 94660; 94760; 96374; 99291

== ENCOUNTER → 2021-01-09 | Outpatient (CLI) | payer BC ==
[2021-01-09 12:12] LABS: African American GFR (CKD) >90 (>60 ml/min/1.73 sqM); Blood Urea Nitrogen 17 mg/dL (9-20); Non-African American GFR(CKD) >90 (>60 ml/min/1.73 sqM)
--- NOTE | 2021-01-09 12:48 | CT ---
EXAMINATION TYPE: CT angio chest DATE OF EXAM: 01/09/2021 COMPARISON: 10/15/2020 HISTORY: SOB, history of PE and Covid CT DLP: 444.1 mGycm CONTRAST: CT chest with contrast and 3D reconstruction with MIP imaging is performed with IV Contrast, patient injected with 65 mL of Isovue 370. Contrast-enhanced CT of the chest was performed through the course of the pulmonary arteries with mehdi g and mediastinal window settings submitted. 3D reconstruction with MIP imaging was also performed. PULMONARY ARTERIES: The pulmonary arteries and their major tributaries are patent. I do not see kiana dence for sizable filling defect to suggest pulmonary embolic process. LUNGS: The lungs are clear and free of infiltrate. No evidence for atelectasis. No pulmonary nodule or mass is detected. No pleural effusion. MEDIASTINUM: Thoracic aorta is of normal caliber,however, evaluation is limited given timing of the contrast bolus. If there is concern for thoracic aortic pathology consider JOSE. Correlate clinicall y . The heart is not enlarged. No evidence for mediastinal mass. No mediastinal lymph nodes greater than 1cm. HILAR STRUCTURES: No evidence for mass. No hilar lymph nodes greater than 1 cm. UPPER ABDOMEN: No significant abnormality is seen. IMPRESSION: 1. No evidence for Pulmonary embolism at this time.
== END | disposition home or self-care (01) ==
LOC: RADCTMAIN 11:28
PROVIDERS: ATTEND Internal Medicine Critical Care Medicine
DX: R06.02 Shortness of breath (principal); Z86.16 Personal history of COVID-19; Z86.711 Personal history of pulmonary embolism
CPT/HCPCS: 82565; 84520; 71275; 36415; Q9967

== ENCOUNTER → 2021-03-25 | Outpatient (CLI) | payer BC ==
--- NOTE | 2021-03-25 13:32 | XR ---
EXAMINATION TYPE: XR chest 2V DATE OF EXAM: 03/25/2021 COMPARISON: 10/19/2020 HISTORY: 51-year-old male R06.02, shortness of breath and cough TECHNIQUE: Frontal and lateral views FINDINGS: Heart normal size. Aorta and pulmonary vasculature within normal limits. Some strandy areas of atelec tasis are present. Most of the interstitial infiltrate seen on 10/19/2020 appear to have largely resol maria isabel. No pleural effusion. IMPRESSION: The previous bilateral interstitial infiltrates appear to have largely resolved. No definite acute pr ocess.
== END | disposition home or self-care (01) ==
LOC: RADXRMAIN 10:36
PROVIDERS: ATTEND Nurse Practitioner Family
DX: R91.8 Other nonspecific abnormal finding of lung field (principal)
CPT/HCPCS: 71046

== ENCOUNTER → 2021-05-01 | Outpatient (CLI) | payer BC ==
--- NOTE | 2021-05-02 07:12 | CT ---
EXAMINATION TYPE: CT chest wo con DATE OF EXAM: 05/01/2021 COMPARISON: CTA chest January 09, 2021 HISTORY: Lung disease, trouble breathing. History of COVID in September with pulmonary embolism CT DLP: 1021.5 mGycm. Automated Exposure Control for Dose Reduction was Utilized. TECHNIQUE: CT scan of the thorax is performed without IV contrast. High-resolution protocol with 1 m m sequences obtained at 10 mm intervals in supine and prone technique FINDINGS: LUNGS: No significant linear scarring or peripheral fibrotic changes. No large masses. No pleural eff usion or pneumothorax. No honeycombing or bronchiectasis. MEDIASTINUM: Lack of IV contrast is noted to limit evaluation for mediastinal and especially hilar ad enopathy. There are no definitive greater than 1 cm hilar or mediastinal lymph nodes. No cardiomega ly or pericardial effusion is seen. OTHER: Small degree of subareolar gynecomastia bilaterally is redemonstrated. Liver remains diffusely low dense consistent with fatty infiltration. IMPRESSION: No significant chronic parenchymal fibrotic changes.
== END | disposition home or self-care (01) ==
LOC: RADCTMAIN 17:20
PROVIDERS: ATTEND Internal Medicine Critical Care Medicine
DX: J98.4 Other disorders of lung (principal)
CPT/HCPCS: 71250